=== PATIENT | female | born 1975 | race Caucasian/White ===

== ENCOUNTER 2016-03-09 12:53 | Inpatient (IN) | payer MEDICARE ==
--- NOTE | 2016-03-09 13:53 | Emergency Department Report ---
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 Schuster, with complaint of midsternal chest pain, nausea, dizziness and hypotension. Patient says that she was told by Dr. Schuster that her blood pressure was about 70 over palp. The patient has a history of atrial fibrillation with 5's, ND 5, coronary artery disease, history of DVT and PE. Patient says the chest pain as a heaviness and is 8 out of 10 currently. She received some aspirin in route by EMS. Patient says she had 2 different admissions to [facility] in late January and early February for chest pain and hypotension. She required dopamine drips at that time. She says she had a stress test that was normal. She previously saw a Dr. Kunz in [place] regarding her cardiac ablations and follow with the cardiology group to [place], but it was suggested by her PCP that she seek out a new cardiology group and thus was seeing Dr. Schuster for the first time. She denies any fever, diaphoresis, back pain or shortness of breath. Severity scale (0 -10): 8 - Related Data Home Medications Medication Instructions Recorded Confirmed Last Taken Aspirin [Aspirin TAB] 325 mg PO QDAY 03/09/16 03/09/16 Unknown Clopidogrel [Plavix] 75 mg PO QDAY 03/09/16 03/09/16 Unknown Diazepam Tab [Valium] 5 mg PO QHS PRN 03/09/16 03/09/16 Unknown Gabapentin [Gralise] 300 mg PO 03/09/16 Unknown Oxycodone HCl/Acetaminophen 1 each PO TID PRN 03/09/16 03/09/16 Unknown [Percocet 10/325 mg] Quetiapine Fumarate [Seroquel] 100 mg PO QHS 03/09/16 03/09/16 Unknown Tizanidine HCl [Zanaflex] 4 mg PO TID PRN 03/09/16 03/09/16 Unknown Allergies Allergy/AdvReac Type Severity Reaction Status Date / Time Cephalosporins Allergy Anaphylaxis Verified 03/09/16 13:33 latex Allergy Anaphylaxis Verified 03/09/16 13:33 Sulfa (Sulfonamide Allergy Anaphylaxis Verified 03/09/16 13:33 Antibiotics) RAFAEL score - Rafael Score Age > 65: (0) No Aspirin use within the Past 7 Days: (0) No 3 or more CAD Risk Factors: (1) Yes 2 or more Angina events in past 24 hrs: (1) Yes Known CAD with more than 50% Stenosis: (0) No Elevated Cardiac Markers: (0) No ST Deviation Greater than 0.5mm: (0) No RAFAEL Score: 2 ED Review of Systems ROS: Stated complaint: HYPOTENSION,CHEST PAIN Other details as noted in HPI Comment: All other systems reviewed and negative Constitutional: denies: chills, fever Eyes: denies: eye pain, eye discharge, vision change ENT: denies: ear pain, throat pain Respiratory: denies: cough, shortness of breath, wheezing Cardiovascular: chest pain, palpitations Gastrointestinal: nausea. denies: abdominal pain Genitourinary: denies: urgency, dysuria, discharge Musculoskeletal: denies: back pain, joint swelling, arthralgia Skin: denies: rash, lesions Neurological: other (dizziness/lightheadedness). denies: headache, numbness ED Past Medical Hx - Past Medical History Previous Medical History?: Yes Hx Heart Attack/AMI: Yes Hx Deep Vein Thrombosis: Yes Hx Pulmonary Embolism: Yes Additional medical history: hypotension - Surgical History Past Surgical History?: Yes Additional Surgical History: port placement, ablations, ayala filter - Social History Smoking Status: Never Smoker Substance Use Type: None - Medications Home Medications: Home Medications Medication Instructions Recorded Confirmed Last Taken Type Aspirin [Aspirin TAB] 325 mg PO QDAY 03/09/16 03/09/16 Unknown History Clopidogrel [Plavix] 75 mg PO QDAY 03/09/16 03/09/16 Unknown History Diazepam Tab [Valium] 5 mg PO QHS PRN 03/09/16 03/09/16 Unknown History Gabapentin [Gralise] 300 mg PO 03/09/16 Unknown History Oxycodone HCl/Acetaminophen 1 each PO TID PRN 03/09/16 03/09/16 Unknown History [Percocet 10/325 mg] Quetiapine Fumarate [Seroquel] 100 mg PO QHS 03/09/16 03/09/16 Unknown History Tizanidine HCl [Zanaflex] 4 mg PO TID PRN 03/09/16 03/09/16 Unknown History ED Physical Exam - General Limitations: No Limitations - Other Other exam information: GENERAL: The patient is well-developed well-nourished. HEENT: Normocephalic. Atraumatic. Extraocular motions are intact. Patient has moist mucous membranes. Pupils equal reactive to light bilaterally. NECK: Supple. Trachea is midline. CHEST/LUNGS: Clear to auscultation. There is no respiratory distress noted. Chest pain is not reproducible to palpation of chest wall. HEART/CARDIOVASCULAR: Regular. There is no tachycardia. There is no gallop rub or murmur. ABDOMEN: Abdomen is soft, nontender. Patient has normal bowel sounds. There is no abdominal distention. SKIN: There is no rash. There is no edema. There is no diaphoresis. NEURO: The patient is awake, alert, and oriented. The patient is cooperative. The patient has no focal neurologic deficits. The patient has normal speech. MUSCULOSKELETAL: There is no tenderness or deformity. There is no limitation range of motion. There is no evidence of acute injury. Cap refill less than 2 seconds. ED Course Vital Signs 03/09/16 03/09/16 03/09/16 13:07 13:10 13:16 Temperature Pulse Rate 79 71 Respiratory 16 11 L Rate Blood Pressure 103/55 103/55 Blood Pressure [Right] O2 Sat by Pulse 100 99 100 Oximetry 03/09/16 03/09/16 03/09/16 13:20 13:26 13:30 Temperature Pulse Rate 75 74 70 Respiratory 10 L 17 12 Rate Blood Pressure 103/55 103/55 97/51 Blood Pressure [Right] O2 Sat by Pulse 100 98 Oximetry 03/09/16 03/09/16 03/09/16 13:36 13:38 13:40 Temperature 98.1 F Pulse Rate 75 78 74 Respiratory 9 L 11 L Rate Blood Pressure 97/51 97/51 97/51 Blood Pressure [Right] O2 Sat by Pulse 100 99 98 Oximetry 03/09/16 03/09/16 03/09/16 13:46 13:48 13:50 Temperature Pulse Rate 84 69 Respiratory 17 18 15 Rate Blood Pressure 97/51 97/51 Blood Pressure [Right] O2 Sat by Pulse 99 99 100 Oximetry 03/09/16 03/09/16 03/09/16 13:56 14:00 14:06 Temperature Pulse Rate 75 75 81 Respiratory 17 11 L 16 Rate Blood Pressure 97/51 108/75 108/75 Blood Pressure [Right] O2 Sat by Pulse 100 100 94 Oximetry 03/09/16 03/09/16 03/09/16 14:10 14:15 14:20 Temperature Pulse Rate 80 78 77 Respiratory 17 14 13 Rate Blood Pressure 108/75 Blood Pressure [Right] O2 Sat by Pulse 96 99 100 Oximetry 03/09/16 03/09/16 03/09/16 14:26 14:30 14:36 Temperature Pulse Rate 84 73 68 Respiratory 13 13 12 Rate Blood Pressure 93/57 108/75 Blood Pressure [Right] O2 Sat by Pulse 100 92 100 Oximetry 03/09/16 03/09/16 03/09/16 14:40 14:46 14:50 Temperature Pulse Rate 78 81 81 Respiratory 12 14 15 Rate Blood Pressure 108/75 108/75 108/75 Blood Pressure [Right] O2 Sat by Pulse 100 100 100 Oximetry 03/09/16 03/09/16 03/09/16 14:56 15:00 15:06 Temperature Pulse Rate 92 H 88 74 Respiratory 14 13 18 Rate Blood Pressure 108/75 112/70 112/70 Blood Pressure [Right] O2 Sat by Pulse 99 98 98 Oximetry 03/09/16 03/09/16 03/09/16 15:10 15:16 15:20 Temperature Pulse Rate 77 79 76 Respiratory 15 15 14 Rate Blood Pressure 112/70 112/70 112/70 Blood Pressure [Right] O2 Sat by Pulse 100 100 100 Oximetry 03/09/16 03/09/16 03/09/16 15:26 15:30 15:36 Temperature Pulse Rate 78 83 74 Respiratory 15 14 15 Rate Blood Pressure 112/70 102/58 102/58 Blood Pressure [Right] O2 Sat by Pulse 100 100 100 Oximetry 03/09/16 03/09/16 03/09/16 15:40 15:46 15:50 Temperature Pulse Rate 70 63 63 Respiratory 22 20 21 Rate Blood Pressure 102/58 102/58 102/58 Blood Pressure [Right] O2 Sat by Pulse 100 100 100 Oximetry 03/09/16 03/09/16 03/09/16 15:56 16:00 16:06 Temperature Pulse Rate 61 62 68 Respiratory 19 21 21 Rate Blood Pressure 102/58 85/31 85/31 Blood Pressure [Right] O2 Sat by Pulse 99 100 100 Oximetry 03/09/16 03/09/16 03/09/16 16:10 16:16 16:20 Temperature Pulse Rate 63 63 62 Respiratory 20 21 20 Rate Blood Pressure 85/31 85/31 85/31 Blood Pressure [Right] O2 Sat by Pulse 99 99 98 Oximetry 03/09/16 03/09/16 03/09/16 16:25 16:30 16:36 Temperature Pulse Rate 68 61 64 Respiratory 14 13 16 Rate Blood Pressure 77/38 81/38 81/38 Blood Pressure [Right] O2 Sat by Pulse 98 100 98 Oximetry 03/09/16 03/09/16 03/09/16 16:40 16:45 16:50 Temperature Pulse Rate 61 67 61 Respiratory 12 12 14 Rate Blood Pressure 90/48 84/45 84/45 Blood Pressure [Right] O2 Sat by Pulse 99 99 98 Oximetry 03/09/16 03/09/16 03/09/16 16:55 16:56 17:00 Temperature Pulse Rate 59 L 59 L 58 L Respiratory 16 18 18 Rate Blood Pressure 84/45 84/45 84/45 Blood Pressure [Right] O2 Sat by Pulse 100 99 99 Oximetry 03/09/16 03/09/16 03/09/16 17:04 17:06 17:10 Temperature Pulse Rate 58 L 55 L 59 L Respiratory 18 23 16 Rate Blood Pressure 84/45 84/45 84/45 Blood Pressure [Right] O2 Sat by Pulse 99 98 98 Oximetry 03/09/16 03/09/16 03/09/16 17:15 17:20 17:30 Temperature Pulse Rate 57 L 65 68 Respiratory 17 18 18 Rate Blood Pressure 86/39 Blood Pressure 87/40 87/42 [Right] O2 Sat by Pulse 99 99 99 Oximetry 03/09/16 03/09/16 03/09/16 17:45 17:51 17:56 Temperature Pulse Rate 62 59 L 61 Respiratory 18 20 17 Rate Blood Pressure 95/54 95/54 Blood Pressure 98/51 [Right] O2 Sat by Pulse 99 97 98 Oximetry 03/09/16 18:00 Temperature Pulse Rate 58 L Respiratory 21 Rate Blood Pressure 95/54 Blood Pressure [Right] O2 Sat by Pulse 97 Oximetry ED Medical Decision Making - Lab Data Result diagrams: 03/09/16 Unknown 03/09/16 Unknown - EKG Data -: EKG Interpreted by Me EKG shows normal: sinus rhythm (with sinus arrhythmia), axis, intervals, QRS complexes, ST-T waves Rate: normal - EKG Data When compared to previous EKG there are: previous EKG unavailable Interpretation: normal EKG - Radiology Data Radiology results: report reviewed, image reviewed interpreted by me: Chest x-ray did not show any acute process. Heart is normal shape and size. No effusions. No pneumothorax. No signs of pneumonia seen. VQ scan is low probability for pulmonary embolism. - Medical Decision Making 40-year-old female with history of hypotension, chest pain presents to the emergency department from cardiology after having a systolic blood pressure less than 70 with her current complaints. Patient does present with some hypertension but the blood pressure has remained in the 90s for systolic. Patient had a full cardiac workup. EKG does not show any signs of ST elevation ND. First troponin is negative. Patient does not have any significant electrolyte abnormalities, glucose abnormalities but does have some mild renal insufficiency. Patient has a slightly elevated in equivocal d-dimer so a VQ scan was done and came back low probability for PE. Chest x-ray does not show any acute process. Patient did have an episode of of hypotension just before her VQ scan which she went down to a systolic of about 70 and became slightly diaphoretic. She responded to IV fluid resuscitation. Patient is already been seen in the emergency department by cardiology and it appears as if they plan to do a echocardiogram tomorrow. Patient has a power chest port if necessary for any pressors. Patient has been accepted for admission by the hospitalist, Dr. Marc. - Differential Diagnosis ND, PE, pneumonia, syncope Critical Care Time: No Critical care attestation.: If time is entered above; I have spent that time in minutes in the direct care of this critically ill patient, excluding procedure time. ED Disposition Clinical Impression: Chest pain Qualifiers: Chest pain type: unspecified Qualified Code(s): R07.9 - Chest pain, unspecified Hypotension Qualifiers: Hypotension type: unspecified hypotension type Qualified Code(s): I95.9 - Hypotension, unspecified Disposition: OP ADMITTED IP TO THIS HOSP Is pt being admited?: Yes Condition: Fair Instructions: Chest Pain (ED) Time of Disposition: 18:46
[2016-03-09 14:18] LABS: Basophils % (Auto) 0.3 % (0.0-1.8); Eosinophils % (Auto) 1.1 % (0.0-4.3); Hematocrit 37.1 % (30.3-42.9); Hemoglobin 12.2 gm/dl (10.1-14.3); Mean Corpuscular HGB Conc 33 % (30-34); Mean Corpuscular Hemoglobin 29 pg (28-32); Mean Corpuscular Volume 89 fl (79-97); Platelet Count 315 K/mm3 (140-440); Red Blood Count 4.17 M/mm3 (3.65-5.03); Red Cell Distribution Width 13.1 % (13.2-15.2); White Blood Count 10.9 K/mm3 (4.5-11.0)
[2016-03-09 14:29] LABS: INR 1.05 (0.87-1.13); Partial Thromboplastin Time 36.7 Sec. (24.2-36.6)
--- NOTE | 2016-03-09 14:30 | Admit Criteria Form ---
Admission Criteria Documentation: CARDIOLOGY GRG Clinical Indications for Admission to Inpatient Care ( Place 'X' for any and all applicable criteria): Hospital admission is needed for appropriate care of the patient because of ANY ONE of the following (1): [ X] I. Hemodynamic instability as indicated by ALL of the following (1)(2)(3 )(4)(5) [ X]a) Vital signs or other findings not as expected for chronic patient condition or baseline [ X]b) Instability indicated by ANY ONE of the following: [ X]i) Hypotension [ ]ii) Symptomatic Tachycardia unresponsive to treatment ( e.g., analgesia, fluids, sedation as indicated) [ ]iii) Inadequate perfusion indicated by ANY ONE of the following: [ ] 1) Lactic acidosis (> 2 mmol/L) [ ] 2) New abnormal capillary refill (> 3 seconds) [ ] 3) Reduced urine output [ ] 4) New altered mental status [ ]iv) Orthostatic vital sign changes unresponsive to treatment (e.g., fluids) [ ]v) IV inotropic or vasopressor medication required to maintain adequate blood pressure or perfusion [ ] II. Severe heart failure as indicated by ANY ONE of the following(17)(18) [ ]a) Respiratory distress [ ]b) Hypotension [ ]c) Anasarca (refractory to outpatient therapy) [ ]d) Cardiac arrhythmias of immediate concern [ ]e) Myocardial ischemia [ ] III. Cardiac arrhythmias or findings of immediate concern indicated by ANY ONE of the following (19)(20): [ ] a) Heart rhythms that are inherently dangerous or unstable indicated by ANY ONE of the following (21)(22)(23): [ ] i) Resuscitated ventricular fibrillation or cardiac arrest [ ] ii) Ventricular escape rhythm [ ] iii) Sustained ventricular tachycardia (30 seconds or more of ventricular rhythm at greater than 100 beats per minute) [ ] iv) Nonsustained ventricular tachycardia and ANY ONE of the following: [ ] 1) Suspected cardiac ischemia as cause or consequence of ventricular tachycardia [ ] 2) In setting of acute myocarditis [ ] b) Unstable cardiac conduction defects indicated by ANY ONE of the following(23)(24)(25) [ ] i) Type II second-degree atrioventricular block [ ]ii) Third-degree atrioventricular block [ ]iii) New-onset left bundle branch block with suspected myocardial ischemia [ ]c) Any heart rhythm and ANY ONE of the following (21)(22)(26)(27) (28) [ ] i) Continuous long-term ECG monitoring needed (e.g., initiation of drug requiring monitoring for more than 24 hours) [ ] ii) Patient has automatic implanted cardioverter defibrillator that is repeatedly firing, malfunctioning, or in need of immediate adjustment of settings beyond the scope of ambulatory or observation care [ ]d) Heart rhythms of concern due to ANY ONE of the following: [ ] i) Hypotension [ ] ii) Respiratory distress [ ] iii) Association with other significant symptoms (e.g., bradycardia with syncope or ongoing dizziness, supraventricular tachycardia with chest pain (14)(15)(17) [ ] IV. Monitoring for cardiac contusion beyond the scope of observation care needed [A](30)(31)(32) [ ] V. Surgical or device complication (e.g., valve replacement complication , pacemaker dysfunction) (35)(41)(44)(45)(46) [ ] . Inpatient palliative care needed. [B](49) Also use Inpatient Palliative Care Criteria [ ] VII. Nonbacterial thrombotic (marantic) endocarditis (36)(43)(47)(48) [ ] VIII. Cardiology condition, symptom, or finding for which emergency and observation care has failed or are not considered appropriate. [ ] IX. Acute valvular disease requiring inpatient as indicated by ANY ONE of the following (41) [ ]a) Acute valvular regurgitation (42) [ ]b) Noninfectious valvulitis (43) [ ]c) Obstructive valve thrombosis [ ]d) Paravalvular leak [ ]e) Other significant valvular disorder remaining after emergency or observation level of care (as appropriate) [ ]X. Pericardial disease requiring inpatient treatment as indicated by ANY ONE of the following (33)(34)(35)(36)(37) [ ]a) Suspected tamponade (38)(39)(40) [ ]b) Hemopericardium [ ]c) Other significant pericardial disorder remaining after emergency or observation level of care (as appropriate) [ ] XI. Cardiac ischemia beyond scope of emergency and observation care. [ ] XII. Hypertension requiring inpatient treatment as indicated by ANY ONE of the following (6)(7)(8) [ ]a) SBP greater than 220 mm Hg or DBP greater than 120 mmHg despite treatment [ ]b) SBP greater than 140 mm Hg or DBP greater than 100 mm Hg with evidence of acute end organ damage as indicated by ANY ONE of the following [ ] i) Altered mental status [ ] ii) Acute renal failure as indicated by new onset of ANY ONE of the following (9)(10)(11)(12)(13) [ ]1) 3-fold rise in serum creatinine from baseline [ ]2) Serum creatinine greater than 4 mg/dL ( 354 micromoles/L) with acute rise greater than 0.5 mg/dL (44.2 micromoles/L) [ ]3) Reduction of more than 75% in estimated glomerular filtration rate from baseline [ ]4) Estimated glomerular filtration rate less than 35 mL/min/1.73m2 (0.59 mL/sec/1.73m2) in child up to 18 years of age [ ]5) Cessation of urine output indicated by ALL of the following [ ]A. Adequate volume status [ ]B. Inadequate urine output as indicated by ANY ONE of the following [ ]a. Urine output less than 0.3 mL/kg/hr for 24 hours [ ]b. Anuria (urine output less than 0.1 mL/kg/hr) for 12 hours [ ] iii) Aortic dissection [ ] iv) Myocardial Ischemia [ ] v) Left ventricular heart failure [ ]vi) Retinal Hemorrhage [ ]vii) Other significant finding [ ]c) Hypertension in child requiring inpatient treatment as indicated by ALL of the following(14)(15)(16) [ ] i) Outpatient treatment not effective, not available, or not appropriate [ ]ii) SBP or DBP greater than 95th percentile for age [ ]iii) Evidence of acute end organ damage as indicated by ANY ONE of the following [ ]1) Altered mental status [ ]2) Acute renal failure as indicated by new onset of ANY ONE of the following(9)(10)(11)(12)(13) [ ]A. 3-fold rise in serum creatinine from baseline [ ]B. Serum creatinine greater than 4 mg/dL (354 micromoles/L) with acute rise greater than 0.5 mg/dL (44.2 micromoles/L) [ ]C. Reduction of more than 75% in estimated glomerular filtration rate from baseline [ ]D. Estimated glomerular filtration rate less than 35 mL/min/1.73m2 (0.59 mL/sec/1.73m2) in child up to 18 years of age [ ]E. Cessation of urine output indicated by ALL of the following [ ]a. Adequate volume status [ ]b. Inadequate urine output as indicated by ANY ONE of the following [ ]i) Urine output less than 0.3 mL/kg/hr for 24 hours [ ]ii) Anuria ( urine output less than 0.1 mL/kg/hr) for 12 hours [ ]3) Severe headache [ ]4) Visual disturbance [ ]5) Retinal hemorrhage [ ]6) Other significant finding [ ]XIII. Complications of transplanted heart indicated by ANY ONE of the following(61): [ ]a) Acute graft rejection requiring inpatient management (eg, intravenous immunosuppression)(62)(63) [ ]b) Acute graft heart failure indicated by ANY ONE of the following(64): [ ]i) Hemodynamic instability [ ]ii) Cardiac arrhythmias of immediate concern [ ]iii) Pulmonary edema that is very severe (eg, mechanical ventilation needed, imminent or likely, need for 100% oxygen to keep oxygen saturation above 90%) [ ]iv) Pulmonary edema that is persistent as indicated by ALL of the following: [ ]1) New need for oxygen therapy to keep oxygen saturation above 90% (or increased FiO2 need from baseline) [ ]2) Has not improved sufficiently with emergency department or observation care IV diuretics or other heart failure treatments[E] [ ]v) Altered mental status that is severe or persistent [ ]vi) Increased creatinine (new on laboratory test) with reduction of more than 50% in estimated glomerular filtration rate from baseline [ ]vii) Progressively (ongoing) rising creatinine (known from past laboratory test) with reduction of more than 25% in estimated glomerular filtration rate from baseline [ ]viii) Acute renal failure [ ]ix) Acute peripheral ischemia (eg, examination shows pulseless, cool, mottled, or cyanotic extremity) [ ]x) Pulmonary artery catheter monitoring needed [ ]xi) Other sign or symptom of heart failure requiring inpatient treatment (ie, too severe or not responsive to outpatient and observation care treatment) [ ]c) Infection requiring inpatient management (eg, Hemodynamic instability, need for intravenous antimicrobial treatment)(66)(67)(68)(69)(70) [ ]d) Cardiac allograft vasculopathy requiring inpatient management ( eg evidence of cardiac ischemia)(71) [ ]e) Other complication of transplanted heart (eg, stroke, severe pulmonary hypertension, severe valvular dysfunction) requiring inpatient management(72) The original [facility] [employer] content created by [facility] has been revised. The portions of the content which have been revised are identified through the use of italic text or in bold, and [facility] has neither reviewed nor approved the modified material. All other unmodified content is copyright [facility]. Please see references footnoted in the original [facility] [employer] edition 2016 Admission Criteria Met: Yes
[2016-03-09 14:34] LABS: Alanine Aminotransferase 16 units/L (7-56); Albumin 3.9 g/dL (3.9-5); Albumin/Globulin Ratio 1.2 %; Alkaline Phosphatase 108 units/L (35-129); BUN/Creatinine Ratio 13.18; Bilirubin,Total 0.5 mg/dL (0.1-1.2); Blood Urea Nitrogen 29 mg/dL (7-17); Calcium 8.9 mg/dL (8.4-10.2); Carbon Dioxide 25 mmol/L (22-30); Chloride 99.5 mmol/L (98-107); Creatine Kinase 28 units/L (30-135); Glucose 100 mg/dL (65-100); Potassium 4.1 mmol/L (3.6-5.0); Sodium 139 mmol/L (137-145); Total Protein 7.1 g/dL (6.3-8.2)
[2016-03-09 14:36] LABS: Anion Gap 19 mmol/L; Creatine Kinase MB < 1.0 ng/mL (0.0-4.0)
--- NOTE | 2016-03-09 15:01 | XRay Report ---
AP chest x-ray. Findings: The heart and lungs are normal. A right central line terminates in the SVC and there is no pneumothorax. Impression: No acute findings.
--- NOTE | 2016-03-09 16:07 | Consultation ---
History of Present Illness Consult date: 03/09/16 Requesting physician: VIVIANA MESA Consult reason: hypotension History of present illness: The patient is a 40 year old female with a history of afib s/p ablations, DVT, PE, hypotension who presented to Dr. Schuster's office this morning for evaluation of chest pain, hypotension and dizziness. In the office her BP was 92/70 lying and only 68 palpable standing so she was sent to the ER via EMS for further evaluation. She complains of chest pain that she describes as a "heaviness" and states that it is worse with movement and deep inspiration. She reports extreme fatigue and dizziness upon standing for the past several months. She states that she had 2 different admissions to [facility] in late January and early February for chest pain and hypotension and reports temporarily requiring dopamine. However, she states that no one could ever tell her why she was so hypotensive and thus was seeking out the opinion of a new boiler operator helper, Dr. Schuster. Past History Past Medical History: atrial fib, DVT, PVD, other (chronic kidney disease, possible Lupus) Past Surgical History: Other (port placement, afib ablation ) Social history: denies: smoking, alcohol abuse, prescription drug abuse, IV drug use Family history: CAD Medications and Allergies Allergies Allergy/AdvReac Type Severity Reaction Status Date / Time Cephalosporins Allergy Anaphylaxis Verified 03/09/16 13:33 latex Allergy Anaphylaxis Verified 03/09/16 13:33 Sulfa (Sulfonamide Allergy Anaphylaxis Verified 03/09/16 13:33 Antibiotics) Home Medications Medication Instructions Recorded Confirmed Last Taken Type Aspirin [Aspirin TAB] 325 mg PO QDAY 03/09/16 03/09/16 Unknown History Clopidogrel [Plavix] 75 mg PO QDAY 03/09/16 03/09/16 Unknown History Diazepam Tab [Valium] 5 mg PO QHS PRN 03/09/16 03/09/16 Unknown History Gabapentin [Gralise] 300 mg PO 03/09/16 Unknown History Oxycodone HCl/Acetaminophen 1 each PO TID PRN 03/09/16 03/09/16 Unknown History [Percocet 10/325 mg] Quetiapine Fumarate [Seroquel] 100 mg PO QHS 03/09/16 03/09/16 Unknown History Tizanidine HCl [Zanaflex] 4 mg PO TID PRN 03/09/16 03/09/16 Unknown History Review of Systems Constitutional: fatigue, weakness, no fever, no chills Ears, nose, mouth and throat: no nasal congestion, no nasal discharge, no sinus pressure Cardiovascular: chest pain, palpitations, lightheadedness, no shortness of breath Respiratory: no cough, no shortness of breath, no congestion, no wheezing Gastrointestinal: no abdominal pain, no nausea, no vomiting, no diarrhea Genitourinary Female: no dysuria, no urgency Musculoskeletal: no neck stiffness, no neck pain, no myalgias Integumentary: no rash, no pruritis Neurological: no parathesias, no numbness, no tingling, no headaches Endocrine: no cold intolerance, no heat intolerance Hematologic/Lymphatic: no easy bruising, no easy bleeding Allergic/Immunologic: no urticaria, no wheezing Physical Examination Vital Signs Temp Pulse BP Pulse Ox 98.1 F 78 97/51 99 03/09/16 13:38 03/09/16 13:38 03/09/16 13:38 03/09/16 13:38 General appearance: no acute distress HEENT: Positive: PERRL, Normocephaly, Mucus Membranes Moist Neck: Positive: neck supple, trachea midline Cardiac: Positive: Reg Rate and Rhythm, S1/S2 Lungs: Positive: clear to auscultation Neuro: Positive: Grossly Intact Abdomen: Positive: Soft, Active Bowel Sounds. Negative: Tender Skin: Positive: Clear. Negative: Rash Extremities: Present: normal. Absent: edema Results 03/09/16 Unknown 03/09/16 Unknown Cardiac Enzymes 03/09/16 Range/Units Unknown AST 15 (5-40) units/L CK-MB (CK-2) < 1.0 (0.0-4.0) ng/mL Coagulation 03/09/16 Range/Units Unknown PT 13.6 (12.2-14.9) Sec. INR 1.05 (0.87-1.13) APTT 36.7 H (24.2-36.6) Sec. CBC 03/09/16 Range/Units Unknown WBC 10.9 (4.5-11.0) K/mm3 RBC 4.17 (3.65-5.03) M/mm3 Hgb 12.2 (10.1-14.3) gm/dl Hct 37.1 (30.3-42.9) % Plt Count 315 (140-440) K/mm3 Lymph # 2.4 (1.2-5.4) K/mm3 [place] # 0.6 (0.0-0.8) K/mm3 Eos # 0.1 (0.0-0.4) K/mm3 Baso # 0.0 (0.0-0.1) K/mm3 Comprehensive Metabolic Panel 03/09/16 Range/Units Unknown Sodium 139 (137-145) mmol/L Potassium 4.1 (3.6-5.0) mmol/L Chloride 99.5 (98-107) mmol/L Carbon Dioxide 25 (22-30) mmol/L BUN 29 H (7-17) mg/dL Creatinine 2.2 H (0.7-1.2) mg/dL Glucose 100 (65-100) mg/dL Calcium 8.9 (8.4-10.2) mg/dL AST 15 (5-40) units/L ALT 16 (7-56) units/L Alkaline Phosphatase 108 (35-129) units/L Total Protein 7.1 (6.3-8.2) g/dL Albumin 3.9 (3.9-5) g/dL - Imaging and Cardiology Echo: pending EKG: image reviewed EKG interpretations - Telemetry EKG Rhythm: Sinus Rhythm - EKG Sinus rhythms and dysrhythmias: sinus rhythm Assessment and Plan Hypotension obtain orthostatics Atypical chest pain obtain echo await V/Q scan results continue to observe on the monitor Hx. of atrial fibrillation s/p ablation (done in [place], [place]) Chronic kidney disease Hx. of DVT/PE ?Lupus Will obtain orthostatics and continue to observe on the monitor. Await echo findings. The patient has been seen in conjunction with Dr. Cullen who agrees with the assessment and plan of care.
[2016-03-09] MEDS ORDERED: NACL 0.9% 1000 ML 1,000 ML IV ONE ×4 (16:34→19:10)
--- NOTE | 2016-03-09 18:06 | Nuclear Medicine Report ---
FINAL REPORT EXAM: NM LUNG SCAN PERF/VENT HISTORY: CP, elevated dimer . Prior history of PE and DVT 6 months ago TECHNIQUE: Ventilation and perfusion imaging of the lungs was performed in multiple planar projections. Correlation with a chest x-ray dated 03/09/2016 was made. DOSE: 15 millicuries Xe-133 gas; 5.0 millicuries 99m Tc MAA given IV. PRIORS: None. FINDINGS: The tracer distribution on perfusion imaging is homogeneous throughout. No unmatched segmental or subsegmental perfusion defects are identified to suggest the presence of pulmonary embolism. The ventilation study is also homogeneous and within normal limits. IMPRESSION: Normal V/Q scan
[2016-03-09 20:42] LABS: Creatine Kinase 26 units/L (30-135)
--- NOTE | 2016-03-09 20:45 | History and Physical Report ---
History of Present Illness Date of examination: 03/09/16 Date of admission: 03/09/16 Chief complaint: Chest pain today Hypotension History of present illness: Miss Leonard is a 40-year-old female who was sent in by Dr. Schuster her manager office for further evaluation of hypotension. She reported that she went for her routine cardiology appointment and was noted to have hypotension with systolic as low as 68 palpable. She also reported that she's been feeling weak and had associated chest pain today with dizziness. She gives a history of having on and off hypotension for which she is now admitted to the hospital for on previous occasions. She was seen by the manager office and echo ordered with orthostatics Past History Past Medical History: atrial fib, DVT, PVD, other (chronic kidney disease, possible Lupus) Past Surgical History: Other (port placement, afib ablation ) Social history: denies: smoking, alcohol abuse, prescription drug abuse, IV drug use Family history: CAD Medications and Allergies Allergies Allergy/AdvReac Type Severity Reaction Status Date / Time Cephalosporins Allergy Anaphylaxis Verified 03/09/16 13:33 latex Allergy Anaphylaxis Verified 03/09/16 13:33 Sulfa (Sulfonamide Allergy Anaphylaxis Verified 03/09/16 13:33 Antibiotics) Home Medications Medication Instructions Recorded Confirmed Last Taken Type Aspirin [Aspirin TAB] 325 mg PO QDAY 03/09/16 03/09/16 Unknown History Clopidogrel [Plavix] 75 mg PO QDAY 03/09/16 03/09/16 Unknown History Diazepam Tab [Valium] 5 mg PO QHS PRN 03/09/16 03/09/16 Unknown History Gabapentin [Gralise] 300 mg PO 03/09/16 Unknown History Oxycodone HCl/Acetaminophen 1 each PO TID PRN 03/09/16 03/09/16 Unknown History [Percocet 10/325 mg] Quetiapine Fumarate [Seroquel] 100 mg PO QHS 03/09/16 03/09/16 Unknown History Tizanidine HCl [Zanaflex] 4 mg PO TID PRN 03/09/16 03/09/16 Unknown History Active Meds: Active Medications Sodium Chloride (Nacl 0.9% 1000 Ml) 1,000 mls @ 125 mls/hr IV ONCE ONE Stop: 03/10/16 03:09 Last Admin: 03/09/16 19:45 Dose: 125 mls/hr Review of Systems All systems: negative Constitutional: fatigue, weakness, malaise, lethargy, no weight loss, no weight gain, no fever, no chills, no anorexia Ears, nose, mouth and throat: no ear pain, no ear discharge, no tinnitis Breasts: normal Cardiovascular: other (as in [facility] ) Respiratory: no cough, no cough with sputum, no excessive sputum, no hemoptysis , no shortness of breath Gastrointestinal: no abdominal pain, no nausea, no vomiting, no diarrhea, no constipation, no change in bowel habits Genitourinary Female: no flank pain, no dysuria, no urinary frequency Rectal: no pain, no incontinence, no bleeding Musculoskeletal: no neck stiffness, no neck pain, no shooting arm pain, no arm numbness/tingling, no low back pain, no shooting leg pain Integumentary: no rash, no pruritis, no redness, no sores Neurological: no head injury, no transient paralysis, no paralysis, no weakness Psychiatric: no anxiety, no memory loss, no change in sleep habits Endocrine: no cold intolerance, no heat intolerance, no polyphagia, no excessive thirst Hematologic/Lymphatic: no easy bruising, no easy bleeding Allergic/Immunologic: no urticaria, no allergic rhinitis Exam - Constitutional Vitals: Temp Pulse Resp BP Pulse Ox 98.1 F 64 18 99/54 100 03/09/16 13:38 03/09/16 19:30 03/09/16 19:30 03/09/16 19:30 03/09/16 19:30 General appearance: Present: no acute distress, well-nourished - EENT Eyes: Present: PERRL, EOM intact. Absent: scleral icterus, conjunctival injection ENT: hearing intact, clear oral mucosa, no oropharyngeal erythema, no poor dentition - Neck Neck: Present: supple. Absent: enlarged thyroid, masses or JVD - Respiratory Respiratory effort: normal Respiratory: negative: diminished, rales, rhonchi, wheezing - Cardiovascular Rhythm: regular Heart Sounds: Present: S1 & S2. Absent: gallop - Extremities Extremities: no ischemia, pulses intact, pulses symmetrical, No edema - Abdominal General gastrointestinal: Present: soft, non-tender, non-distended, normal bowel sounds Female genitourinary: Present: deferred - Rectal Rectal Exam: deferred - Integumentary Integumentary: Present: clear, warm - Musculoskeletal Musculoskeletal: strength equal bilaterally - Psychiatric Psychiatric: appropriate mood/affect, intact judgment & insight, cooperative - Neurologic Neurologic: CNII-XII intact, moves all extremities Results - Labs CBC & Chem 7: 03/09/16 Unknown 03/09/16 Unknown Labs: Abnormal lab results 03/09/16 03/09/16 03/09/16 Range/Units Unknown Unknown Unknown RDW 13.1 L (13.2-15.2) % Seg Neutrophils % 70.4 H (40.0-70.0) % APTT 36.7 H (24.2-36.6) Sec. D-Dimer 516.98 H (0-234) ng/mlDDU BUN 29 H (7-17) mg/dL Creatinine 2.2 H (0.7-1.2) mg/dL Total Creatine Kinase 28 L (30-135) units/L TSH (0.270-4.200) mlU/mL 03/09/16 Range/Units Unknown RDW (13.2-15.2) % Seg Neutrophils % (40.0-70.0) % APTT (24.2-36.6) Sec. D-Dimer (0-234) ng/mlDDU BUN (7-17) mg/dL Creatinine (0.7-1.2) mg/dL Total Creatine Kinase (30-135) units/L TSH 0.240 L (0.270-4.200) mlU/mL lung scan- negative for PE Assessment and Plan 1. Hypotension- will admit as patient is more than 2 midnights are quite for treatment. We'll follow-up with cardiology for further recommendations. Will follow orthostatics. We'll check echocardiogram. Continue IV fluids and monitor for symptoms of fluid overload 2. Atypical chest pain -doubt acute coronary syndrome. Will follow-up with serial cardiac enzymes. Follow up with echocardiogram. V/Q scan is unremarkable. Follow up with cardiology for further recommendations. Continue aspirin. We'll check lipid panel. 3.Atrial fibrillation -s/p ablation (done in [place], [place])-monitor on telemetry. Follow up with cardiology for further recommendations 4.Chronic kidney disease- avoid nephrotoxins; monitor renal function; consult renal; avoid hypotension 5. ? 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 DVT prophylaxis - lovenox
[2016-03-09 20:48] LABS: Creatine Kinase MB < 1.0 ng/mL (0.0-4.0)
[2016-03-09] MEDS ORDERED: TYLENOL ONE (21:08)
[2016-03-09] MEDS: TYLENOL PO PRN (21:21)
--- NOTE | 2016-03-09 22:22 | Ultrasound Report ---
FINAL REPORT EXAM: US RENAL BILAT HISTORY: renal failure TECHNIQUE: Renal ultrasound. PRIORS: None currently available. FINDINGS: Right kidney measures 9.3 x 4 x 4.5 cm. Cortex measures 1.7 cm. Normal echotexture. No hydronephrosis, stone, or lesion. Left kidney measures 10.3 x 5.1 x 5.2 cm. Cortex measures 1.8 cm. Isoechoic area in the inferior left kidney measures 2.4 x 2.5 x 2.9 cm and could represent a lobulation, column of Shin, or possible renal lesion. No hydronephrosis. No distinct stone. Images of the bladder are unremarkable. IMPRESSION: Possible left renal lesion or congenital variation. Further evaluation with a CT abdomen with and without contrast may be helpful for further evaluation if clinically indicated.
[2016-03-10 07:28] LABS: Anion Gap 17 mmol/L; BUN/Creatinine Ratio 21.25; Blood Urea Nitrogen 17 mg/dL (7-17); Calcium 8.2 mg/dL (8.4-10.2); Carbon Dioxide 21 mmol/L (22-30); Chloride 106.3 mmol/L (98-107); Glucose 106 mg/dL (65-100); Potassium 4.8 mmol/L (3.6-5.0); Sodium 139 mmol/L (137-145)
[2016-03-10] MEDS ORDERED: TYLENOL ONE (07:29)
[2016-03-10] MEDS: TYLENOL PO PRN (07:37)
[2016-03-10] MEDS ORDERED: NACL 0.9% 250ML 250 ML ONE (09:13)
[2016-03-10] MEDS ORDERED: NACL 0.9% 250ML 250 ML IV ONE (09:17)
[2016-03-10] MEDS ORDERED: LOVENOX SUB-Q ONE (09:50)
[2016-03-10] MEDS ORDERED: PLAVIX ONE (09:50)
[2016-03-10] MEDS ORDERED: ASPIRIN ONE (09:50)
[2016-03-10] MEDS ORDERED: LOVENOX SUB-Q SCH (10:00)
--- NOTE | 2016-03-10 10:12 | Consultation ---
History of Present Illness - Reason for Consult Consult date: 03/10/16 acute renal failure - History of Present Illness Patient is a 40 year old WF with history significant for Obesity, A.fib s/p multiple ablations, multiple thromboembolic events and IVC filter s/p removed was sent to the emergency room from [facility] for evaluation of hypotension, chest pain, nausea, and dizziness. Her initial SBP was in 70s. Her initial creatinine was 2.2 and improved with IV fluids to 0.8 today. Patient is also being evaluated by vascular for possible palcement of IVC filter. She has had h/o PRINCESS in the past. No h/o Kidney stone or NSAID intake. She was treated multiple times for UTIs. Past History Past Medical History: atrial fib, DVT, PVD, other (chronic kidney disease, possible Lupus) Past Surgical History: Other (port placement, afib ablation ) Social history: denies: smoking, alcohol abuse, prescription drug abuse, IV drug use Family history: CAD Medications and Allergies Allergies Allergy/AdvReac Type Severity Reaction Status Date / Time Cephalosporins Allergy Anaphylaxis Verified 03/09/16 13:33 latex Allergy Anaphylaxis Verified 03/09/16 13:33 Sulfa (Sulfonamide Allergy Anaphylaxis Verified 03/09/16 13:33 Antibiotics) Home Medications Medication Instructions Recorded Confirmed Last Taken Type Aspirin [Aspirin TAB] 325 mg PO QDAY 03/09/16 03/09/16 Unknown History Clopidogrel [Plavix] 75 mg PO QDAY 03/09/16 03/09/16 Unknown History Diazepam Tab [Valium] 5 mg PO QHS PRN 03/09/16 03/09/16 Unknown History Gabapentin [Gralise] 300 mg PO DAILY 03/09/16 03/10/16 Unknown History Oxycodone HCl/Acetaminophen 1 each PO TID PRN 03/09/16 03/09/16 Unknown History [Percocet 10/325 mg] Quetiapine Fumarate [Seroquel] 100 mg PO QHS 03/09/16 03/09/16 Unknown History Tizanidine HCl [Zanaflex] 4 mg PO TID PRN 03/09/16 03/09/16 Unknown History Active Meds: Active Medications Acetaminophen (Tylenol) 650 mg PO Q4H PRN PRN Reason: pain Last Admin: 03/10/16 07:37 Dose: 650 mg Aspirin (Aspirin) 325 mg PO QDAY [facility] Clopidogrel Bisulfate (Plavix) 75 mg PO QDAY [facility] Enoxaparin Sodium (Lovenox) 30 mg SUB-Q QDAY [facility] Quetiapine Fumarate (Seroquel) 100 mg PO QHS [facility] Last Admin: 03/10/16 01:31 Dose: 100 mg Review of Systems Constitutional: weight gain, poor appetite, no fever, no chills Ears, nose, mouth and throat: sinus pressure, sinus pain, epistaxis Breasts: deferred Cardiovascular: lightheadedness, no edema, no leg edema Respiratory: no cough Gastrointestinal: no abdominal pain, no diarrhea, no melena Genitourinary Female: no dysuria, no hematuria Musculoskeletal: no frequent falls Integumentary: no rash Neurological: no head injury, no paralysis, no syncope Hematologic/Lymphatic: no easy bleeding Allergic/Immunologic: no urticaria Exam - Vital Signs Vital signs: Vital Signs Pulse Ox 100 03/09/16 13:07 - General Appearance General appearance: well-developed, well-nourished, obese, other (no distress) EENT: PERRL, mucous membranes moist, hearing intact, vision intact Neck: Present: neck supple Respiratory: Clear to Ascultation Heart: regular, S1S2 Gastrointestinal: Present: normoactive bowel sounds. Absent: tenderness, distended, guarding Integumentary: no rash, warm and dry Neurologic: no focal deficit, no asterixis, alert and oriented x3, CN 3-12 intact Musculoskeletal: Present: other (no edema) Psychiatric: mood/affect appropriate, cooperative Results - Lab Results 03/09/16 Unknown 03/10/16 07:00 Most recent lab results Calcium 8.2 mg/dL (8.4-10.2) L 03/10/16 07:00 - Image Kidney/bladder ultrasound: report reviewed Assessment and Plan - Patient Problems (1) PRINCESS (acute kidney injury) Current Visit: Yes Status: Acute Plan to address problem: Acute kidney Injury in the setting of hypotension. Kidney function has improved. Monitor renal function. (2) Hypotension Current Visit: Yes Status: Acute Qualifiers: Hypotension type: unspecified hypotension type Qualified Code(s): I95.9 - Hypotension, unspecified Plan to address problem: Etiology is unclear at this time. (3) Thromboembolic disorder Current Visit: Yes Status: Acute Plan to address problem: Followed by Vascular. (4) Atrial fibrillation Current Visit: Yes Status: Acute
[2016-03-10] MEDS: PLAVIX PO SCH (10:30)
[2016-03-10] MEDS: ASPIRIN PO SCH (10:34)
--- NOTE | 2016-03-10 10:43 | Progress Note ---
Assessment and Plan Assessment and plan: Hypotension. BP has been low and she has been given multiple bolus iv fluids. May need to transfer to ICU for pressors if this continues. Discussed with Cardiology. She has been admitted multiple times recently for similar complaint. Chest pain, atypical. Aspirin daily.Cardiology following. DVT prophylaxis with Lovenox. Full code status. Hospitalist Physical - Physical exam Narrative exam: Gen appearance : Not in acute distress, obese, HEENT: Normocephalic atraumatic, Neck: supple, no JVD. Lungs: clear to auscultation bilaterally, no crackles no wheezes Heart: S1 and S2 regular, no murmurs no gallop Abdomen: soft, non-tender, non-distended, normal bowel sounds Extremities: No edema, no clubbing or cyanosis Neuro : Awake alert oriented 3, no focal signs - Constitutional Vitals: Temp Pulse Resp BP Pulse Ox 97.9 F 55 L 10 L 82/54 97 03/10/16 07:11 03/10/16 10:00 03/10/16 10:00 03/10/16 10:00 03/10/16 10:00 General appearance: Present: no acute distress, well-nourished Results - Labs CBC & Chem 7: 03/09/16 Unknown 03/10/16 07:00 Labs: Laboratory Last Values WBC 10.9 K/mm3 (4.5-11.0) 03/09/16 Unknown RBC 4.17 M/mm3 (3.65-5.03) 03/09/16 Unknown Hgb 12.2 gm/dl (10.1-14.3) 03/09/16 Unknown Hct 37.1 % (30.3-42.9) 03/09/16 Unknown MCV 89 fl (79-97) 03/09/16 Unknown MCH 29 pg (28-32) 03/09/16 Unknown MCHC 33 % (30-34) 03/09/16 Unknown RDW 13.1 % (13.2-15.2) L 03/09/16 Unknown Plt Count 315 K/mm3 (140-440) 03/09/16 Unknown Lymph % (Auto) 22.3 % (13.4-35.0) 03/09/16 Unknown [place] % (Auto) 5.9 % (0.0-7.3) 03/09/16 Unknown Eos % (Auto) 1.1 % (0.0-4.3) 03/09/16 Unknown Baso % (Auto) 0.3 % (0.0-1.8) 03/09/16 Unknown Lymph # 2.4 K/mm3 (1.2-5.4) 03/09/16 Unknown [place] # 0.6 K/mm3 (0.0-0.8) 03/09/16 Unknown Eos # 0.1 K/mm3 (0.0-0.4) 03/09/16 Unknown Baso # 0.0 K/mm3 (0.0-0.1) 03/09/16 Unknown Seg Neutrophils % 70.4 % (40.0-70.0) H 03/09/16 Unknown Seg Neutrophils # 7.6 K/mm3 (1.8-7.7) 03/09/16 Unknown PT 13.6 Sec. (12.2-14.9) 03/09/16 Unknown INR 1.05 (0.87-1.13) 03/09/16 Unknown APTT 36.7 Sec. (24.2-36.6) H 03/09/16 Unknown D-Dimer 516.98 ng/mlDDU (0-234) H 03/09/16 Unknown Sodium 139 mmol/L (137-145) 03/10/16 07:00 Potassium 4.8 mmol/L (3.6-5.0) 03/10/16 07:00 Chloride 106.3 mmol/L (98-107) 03/10/16 07:00 Carbon Dioxide 21 mmol/L (22-30) L 03/10/16 07:00 Anion Gap 17 mmol/L 03/10/16 07:00 BUN 17 mg/dL (7-17) 03/10/16 07:00 Creatinine 0.8 mg/dL (0.7-1.2) D 03/10/16 07:00 Estimated GFR > 60 ml/min 03/10/16 07:00 BUN/Creatinine Ratio 21.25 % 03/10/16 07:00 Glucose 106 mg/dL (65-100) H 03/10/16 07:00 Calcium 8.2 mg/dL (8.4-10.2) L 03/10/16 07:00 Total Bilirubin 0.5 mg/dL (0.1-1.2) 03/09/16 Unknown AST 15 units/L (5-40) 03/09/16 Unknown ALT 16 units/L (7-56) 03/09/16 Unknown Alkaline Phosphatase 108 units/L (35-129) 03/09/16 Unknown Total Creatine Kinase 28 units/L (30-135) L 03/09/16 Unknown CK-MB (CK-2) < 1.0 ng/mL (0.0-4.0) 03/09/16 Unknown CK-MB (CK-2) Rel Index 3.5 (0-4) 03/09/16 Unknown Troponin T < 0.010 ng/mL (0.00-0.029) 03/09/16 Unknown Total Protein 7.1 g/dL (6.3-8.2) 03/09/16 Unknown Albumin 3.9 g/dL (3.9-5) 03/09/16 Unknown Albumin/Globulin Ratio 1.2 % 03/09/16 Unknown TSH 0.240 mlU/mL (0.270-4.200) L 03/09/16 Unknown Free T4 1.27 ng/dL (0.76-1.46) 03/09/16 16:40
[2016-03-10] MEDS ORDERED: NACL 0.9% 1000 ML 1,000 ML ONE (10:44)
[2016-03-10] MEDS: NACL 0.9% 1000 ML 1,000 ML IV SCH ×2 (11:00→22:57)
--- NOTE | 2016-03-10 11:39 | Progress Note ---
Addendum entered and electronically signed by BRANDON SALOMON MD 11:58: BP in 80s. Renal function has improved. VQ lung scan: Normal. Sinus rhythm. Needs IVC filter - to be placed again. Consult Vascular surgery. Maintenance IVF 75 ml/hour. Original Note: Assessment and Plan Postural hypotension continue IVF Atypical chest pain obtain echo V/Q scan negative for PE continue to observe on the monitor Hx. of atrial fibrillation s/p ablation (done in [place], [place]) Chronic kidney disease per nephrology Hx. of DVT/PE s/p IVC filter placement and removal will notify vascular ?Lupus Continue IV hydration and close monitoring of HR and blood pressure. Await echo findings. The patient has been seen in conjunction with Dr. Mcgee who agrees with the assessment and plan of care. Subjective Date of service: 03/10/16 Principal diagnosis: postural hypotension Interval history: The patient continue to c/o weakness, dizziness and fatigue. Sinus bradycardia on the monitor. Objective Last Vital Signs Temp 97.9 F 03/10/16 07:11 Pulse 47 L 03/10/16 11:00 Resp 17 03/10/16 11:00 BP 78/42 03/10/16 11:00 Pulse Ox 96 03/10/16 11:00 - Physical Examination General: No Apparent Distress HEENT: Positive: PERRL, Normocephaly, Mucus Membranes Moist Neck: Positive: neck supple, trachea midline Cardiac: Positive: Reg Rate and Rhythm, S1/S2 Lungs: Positive: clear to auscultation Neuro: Positive: Grossly Intact Abdomen: Positive: Soft, Active Bowel Sounds. Negative: Tender Skin: Positive: Clear. Negative: Rash Extremities: Present: normal. Absent: edema - Labs and Meds Cardiac Enzymes 03/09/16 Range/Units Unknown AST 15 (5-40) units/L CK-MB (CK-2) < 1.0 (0.0-4.0) ng/mL Coagulation 03/09/16 Range/Units Unknown PT 13.6 (12.2-14.9) Sec. INR 1.05 (0.87-1.13) APTT 36.7 H (24.2-36.6) Sec. CBC 03/09/16 Range/Units Unknown WBC 10.9 (4.5-11.0) K/mm3 RBC 4.17 (3.65-5.03) M/mm3 Hgb 12.2 (10.1-14.3) gm/dl Hct 37.1 (30.3-42.9) % Plt Count 315 (140-440) K/mm3 Lymph # 2.4 (1.2-5.4) K/mm3 [place] # 0.6 (0.0-0.8) K/mm3 Eos # 0.1 (0.0-0.4) K/mm3 Baso # 0.0 (0.0-0.1) K/mm3 Comprehensive Metabolic Panel 03/09/16 03/10/16 Range/Units Unknown 07:00 Sodium 139 139 (137-145) mmol/L Potassium 4.1 4.8 (3.6-5.0) mmol/L Chloride 99.5 106.3 (98-107) mmol/L Carbon Dioxide 25 21 L (22-30) mmol/L BUN 29 H 17 (7-17) mg/dL Creatinine 2.2 H 0.8 D (0.7-1.2) mg/dL Glucose 100 106 H (65-100) mg/dL Calcium 8.9 8.2 L (8.4-10.2) mg/dL AST 15 (5-40) units/L ALT 16 (7-56) units/L Alkaline Phosphatase 108 (35-129) units/L Total Protein 7.1 (6.3-8.2) g/dL Albumin 3.9 (3.9-5) g/dL - Imaging and Cardiology EKG: image reviewed Echo: pending - Telemetry EKG Rhythm: Sinus Bradycardia - EKG Sinus rhythms and dysrhythmias: sinus rhythm
[2016-03-10] MEDS ORDERED: NACL 0.9% 1000 ML 1,000 ML IV SCH (12:00)
[2016-03-10] MEDS ORDERED: INTROPIN DRIP 800 MG/D5W 250 ML 250 ML IV ONE (12:47)
[2016-03-10] MEDS: INTROPIN DRIP 800 MG/D5W 250 ML 250 ML IV SCH (13:15)
--- NOTE | 2016-03-10 15:13 | Consultation ---
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 Cardiology is evaluating her for hypotension and trying to workup the etiology, but asked vascular see the patient due to her extensive history of thromboembolic events. The patient had numerous prior thromboembolic events, and recalls having a thromboembolic event while being fully anticoagulated with Coumadin. The patient had a long-standing IVC filter until 2 years ago when she had an additional ablation and had to have an IVC filter removal. Since then, she has had 3 thromboembolic events, including 1 involving a pulmonary emboli to the lung which had her "thinking I had a heart attack." She is chronically difficult to anticoagulate due to financial reasons and due to difficulty obtaining blood for Coumadin monitoring. At this time, DVT study demonstrates no lower extremity thrombus. VQ scan demonstrates no pulmonary embolism. Past History Past Medical History: atrial fib, DVT, PVD, other (chronic kidney disease, possible Lupus) Past Surgical History: Other (port placement, afib ablation ) Social history: denies: smoking, alcohol abuse, prescription drug abuse, IV drug use Family history: CAD Medications and Allergies Allergies Allergy/AdvReac Type Severity Reaction Status Date / Time Cephalosporins Allergy Anaphylaxis Verified 03/09/16 13:33 latex Allergy Anaphylaxis Verified 03/09/16 13:33 Sulfa (Sulfonamide Allergy Anaphylaxis Verified 03/09/16 13:33 Antibiotics) Home Medications Medication Instructions Recorded Confirmed Last Taken Type Aspirin [Aspirin TAB] 325 mg PO QDAY 03/09/16 03/09/16 Unknown History Clopidogrel [Plavix] 75 mg PO QDAY 03/09/16 03/09/16 Unknown History Diazepam Tab [Valium] 5 mg PO QHS PRN 03/09/16 03/09/16 Unknown History Gabapentin [Gralise] 300 mg PO DAILY 03/09/16 03/10/16 Unknown History Oxycodone HCl/Acetaminophen 1 each PO TID PRN 03/09/16 03/09/16 Unknown History [Percocet 10/325 mg] Quetiapine Fumarate [Seroquel] 100 mg PO QHS 03/09/16 03/09/16 Unknown History Tizanidine HCl [Zanaflex] 4 mg PO TID PRN 03/09/16 03/09/16 Unknown History Active Meds: Active Medications Acetaminophen (Tylenol) 650 mg PO Q4H PRN PRN Reason: pain Last Admin: 03/10/16 07:37 Dose: 650 mg Aspirin (Aspirin) 325 mg PO QDAY [facility] Last Admin: 03/10/16 10:34 Dose: 325 mg Clopidogrel Bisulfate (Plavix) 75 mg PO QDAY [facility] Last Admin: 03/10/16 10:30 Dose: 75 mg Enoxaparin Sodium (Lovenox) 30 mg SUB-Q QDAY [facility] Last Admin: 03/10/16 10:34 Dose: 30 mg Sodium Chloride (Nacl 0.9% 1000 Ml) 1,000 mls @ 75 mls/hr IV DIRECT KENZIE Last Admin: 03/10/16 11:00 Dose: 75 mls/hr Dopamine HCl/Dextrose (Intropin Drip 800 Mg/D5w 250 Ml) 250 mls @ 4.238 mls/hr IV TITR KENZIE; 2 MCG/KG/MIN PRN Reason: Protocol Last Titration: 03/10/16 14:15 Dose: 2 mcg/kg/min Quetiapine Fumarate (Seroquel) 100 mg PO QHS [facility] Last Admin: 03/10/16 01:31 Dose: 100 mg Review of Systems All systems: negative (see HPI) Exam - Constitutional Vitals: Temp Pulse Resp BP Pulse Ox 97.9 F 66 21 95/42 97 03/10/16 07:11 03/10/16 14:45 03/10/16 14:45 03/10/16 14:45 03/10/16 14:45 General appearance: Present: no acute distress - Respiratory Respiratory effort: normal - Extremities Extremities: normal temperature, normal color - Psychiatric Psychiatric: appropriate mood/affect, cooperative Results - Labs CBC & Chem 7: 03/09/16 Unknown 03/10/16 07:00 Labs: Abnormal lab results 03/10/16 Range/Units 07:00 Carbon Dioxide 21 L (22-30) mmol/L Glucose 106 H (65-100) mg/dL Calcium 8.2 L (8.4-10.2) mg/dL Assessment and Plan 40-year-old female with hypercoagulable state and at least 15 prior thromboembolic events with at least 3 thromboembolic events since her IVC filter was removed 2 years ago in order to perform an additional cardiac ablation. She has had a thromboembolic event while being fully anticoagulated on Coumadin. She is chronically difficult to anticoagulate due to financial reasons preventing her from using Eliquis or Xarelto and difficulty monitoring Coumadin due to difficulty acquiring blood draws. I had a long discussion with her about the risks, benefits, and alternatives of a long-term IVC filter in including IVC filter fracture, IVC thrombosis, increased risk of DVT while having an IVC filter despite the decreased risk of pulmonary embolism. After a long discussion, the patient still wants to have an IVC filter. Discussed with her that she will require yearly x-rays in order to monitor the IVC filter. She will also need be chronically anticoagulated for life given her 15 prior thromboembolic events and hypercoagulable state with or without IVC filter. Consider Eliquis, or Xarelto depending on the cost for her insurance company. Alternatively, consider coumadin if she cannot be provided Xarelto or Eliquis due to cost. She now has a port which she will allow for blood draws. NPO after MN. IVC filter in AM.
[2016-03-10] MEDS ORDERED: NON-FORMULARY (Oxycodone Hcl/Acetaminophen [Percocet 10/325 Mg] 1 EACH) PO PRN (17:11)
[2016-03-10] MEDS ORDERED: ROXICODONE ONE (17:20)
[2016-03-10] MEDS ORDERED: PERCOCET 5/325 ONE (17:20)
[2016-03-10] MEDS: PERCOCET 5/325 PO PRN (17:24)
[2016-03-10] MEDS: ROXICODONE PO PRN (17:24)
[2016-03-11] MEDS: MORPHINE IV PRN ×4 (00:14→23:03)
[2016-03-11 06:18] LABS: Anion Gap 15 mmol/L; BUN/Creatinine Ratio 14.28; Blood Urea Nitrogen 10 mg/dL (7-17); Calcium 8.4 mg/dL (8.4-10.2); Carbon Dioxide 23 mmol/L (22-30); Glucose 118 mg/dL (65-100); Magnesium 1.9 mg/dL (1.7-2.3); Phosphorous 2.8 mg/dL (2.5-4.5); Potassium 4.1 mmol/L (3.6-5.0); Sodium 142 mmol/L (137-145)
--- NOTE | 2016-03-11 07:18 | Progress Note ---
Assessment and Plan - Patient Problems (1) PRINCESS (acute kidney injury) Current Visit: Yes Status: Acute Plan to address problem: Acute kidney Injury in the setting of hypotension. Kidney function has improved. Will follow the labs. (2) Hypotension Current Visit: Yes Status: Acute Qualifiers: Hypotension type: unspecified hypotension type Qualified Code(s): I95.9 - Hypotension, unspecified Plan to address problem: Patient is on Dopamine drip. (3) Thromboembolic disorder Current Visit: Yes Status: Acute Plan to address problem: Followed by Vascular. (4) Atrial fibrillation Current Visit: Yes Status: Acute Plan to address problem: SR now. Subjective Date of service: 03/11/16 Principal diagnosis: postural hypotension Interval history: Patient is feeling better. Objective - Vital Signs Vital signs: Vital Signs - 12hr 03/10/16 03/10/16 03/10/16 19:32 19:45 20:00 Temperature Pulse Rate 71 66 64 Pulse Rate [ Bilateral Radial] Pulse Rate [ Left Radial] Pulse Rate [ Right Radial] Respiratory 12 18 Rate Blood Pressure 87/46 93/45 74/25 O2 Sat by Pulse 99 96 Oximetry 03/10/16 03/10/16 03/10/16 20:15 20:19 20:30 Temperature Pulse Rate 73 67 89 Pulse Rate [ Bilateral Radial] Pulse Rate [ Left Radial] Pulse Rate [ Right Radial] Respiratory 13 15 21 Rate Blood Pressure 118/63 118/63 140/77 O2 Sat by Pulse 98 99 99 Oximetry 03/10/16 03/10/16 03/10/16 20:45 21:00 21:15 Temperature Pulse Rate 88 75 68 Pulse Rate [ Bilateral Radial] Pulse Rate [ Left Radial] Pulse Rate [ Right Radial] Respiratory 13 13 18 Rate Blood Pressure 122/65 111/64 117/58 O2 Sat by Pulse 98 99 98 Oximetry 03/10/16 03/11/16 03/11/16 21:40 00:00 01:00 Temperature 98.1 F 98.1 F Pulse Rate Pulse Rate [ 64 62 Bilateral Radial] Pulse Rate [ 60 Left Radial] Pulse Rate [ 60 Right Radial] Respiratory 18 16 Rate Blood Pressure 140/59 117/68 O2 Sat by Pulse Oximetry 03/11/16 03/11/16 03/11/16 02:00 03:00 03:56 Temperature 97.8 F Pulse Rate Pulse Rate [ 68 63 Bilateral Radial] Pulse Rate [ Left Radial] Pulse Rate [ 60 Right Radial] Respiratory 17 19 Rate Blood Pressure 119/59 106/55 O2 Sat by Pulse Oximetry 03/11/16 03/11/16 04:00 05:00 Temperature 98.8 F Pulse Rate Pulse Rate [ 70 67 Bilateral Radial] Pulse Rate [ Left Radial] Pulse Rate [ Right Radial] Respiratory 17 16 Rate Blood Pressure 126/63 106/55 O2 Sat by Pulse Oximetry - General Appearance General appearance: well-developed, well-nourished, obese, other (no distress) EENT: PERRL, mucous membranes moist, hearing intact, vision intact Neck: no JVD, supple Respiratory: Present: Clear to Ascultation Cardiology: regular, S1S2, no murmurs Gastrointestinal: normoactive bowel sounds, no tenderness, no distended, no guarding Integumentary: no rash, warm and dry Neurologic: no focal deficit, no asterixis, alert and oriented x3, CN 3-12 intact Musculoskeletal: other (no edema) Psychiatric: mood/affect appropriate, cooperative - Lab 03/09/16 Unknown 03/11/16 05:00 Most recent lab results Calcium 8.4 mg/dL (8.4-10.2) 03/11/16 05:00 Phosphorus 2.8 mg/dL (2.5-4.5) 03/11/16 05:00 Magnesium 1.9 mg/dL (1.7-2.3) 03/11/16 05:00
--- NOTE | 2016-03-11 08:54 | Progress Note ---
Addendum entered and electronically signed by BRANDON SALOMON MD 11:10: BP improved on Dopamine. Echo: Normal LVEF of 55 to 60%.Normal RV size & function.Mild pul.hypertension.No pericardial effusion.Serum cortisol level: pending. Awaiting IVC filter placement today by Vascular surgery. Original Note: Assessment and Plan Postural hypotension continue IVF dopamine gtt at 3mcg/kg/min V/Q scan negative for PE await echo findings Atypical chest pain Hx. of atrial fibrillation s/p ablation (done in [place], [place]) Chronic kidney disease renal indices normal today per nephrology Hx. of DVT/PE awaiting IVC filter placement today per vascular ?Lupus The patient has been seen in conjunction with Dr. Mcgee who agrees with the assessment and plan of care. Subjective Date of service: 03/11/16 Principal diagnosis: postural hypotension Interval history: The patient is resting in bed. She remains dizzy with ambulation. Dopamine gtt at 3mcg/kg/min. Sinus rhythm on the monitor. Awaiting IVC filter placement this morning. Objective Last Vital Signs Temp 97.7 F 03/11/16 07:50 Pulse 67 03/11/16 05:00 Resp 16 03/11/16 05:00 BP 106/55 03/11/16 05:00 Pulse Ox 98 03/10/16 21:15 - Physical Examination General: No Apparent Distress HEENT: Positive: PERRL, Normocephaly, Mucus Membranes Moist Neck: Positive: neck supple Cardiac: Positive: Reg Rate and Rhythm, S1/S2 Lungs: Positive: clear to auscultation Neuro: Positive: Grossly Intact Abdomen: Positive: Soft, Active Bowel Sounds. Negative: Tender Skin: Positive: Clear. Negative: Rash Extremities: Present: normal. Absent: edema - Labs and Meds Comprehensive Metabolic Panel 03/11/16 Range/Units 05:00 Sodium 142 (137-145) mmol/L Potassium 4.1 (3.6-5.0) mmol/L Chloride 108.0 H (98-107) mmol/L Carbon Dioxide 23 (22-30) mmol/L BUN 10 (7-17) mg/dL Creatinine 0.7 (0.7-1.2) mg/dL Glucose 118 H (65-100) mg/dL Calcium 8.4 (8.4-10.2) mg/dL - Imaging and Cardiology EKG: image reviewed Echo: pending - Telemetry EKG Rhythm: Sinus Rhythm - EKG Sinus rhythms and dysrhythmias: sinus rhythm
[2016-03-11] MEDS: ASPIRIN PO SCH (10:00)
[2016-03-11] MEDS: PLAVIX PO SCH (10:00)
[2016-03-11] MEDS: LOVENOX SUB-Q SCH (10:00)
--- NOTE | 2016-03-11 10:19 | Echocardiography Report ---
Transthoracic Echocardiogram Indication: Hypotension BP: 90/57 Conclusions *Global left ventricular systolic function is normal. *The estimated ejection fraction is 55-60%. *The left atrium is normal in size with no visual thrombus identified. *The right ventricular cavity size is normal. *The right ventricular global systolic function is normal. *The interatrial septum appears normal. *Mild aortic leaflet calcification is visualized. *There is mild aortic stenosis. *The mean gradient of the aortic valve is 15 mmHg. *There is trace of mitral regurgitation. *There is mild tricuspid regurgitation. *The right ventricular systolic pressure is calculated at 37 mmHg. *There is evidence of mild pulmonary hypertension. *There is no pericardial effusion. *There is no dilatation of the aortic root. *There is no dilatation of the ascending aorta. *The inferior vena cava appears normal in size. Findings Left Ventricle: The left ventricular chamber size is normal. Global left ventricular wall motion and contractility are within normal limits. Global left ventricular systolic function is normal. The estimated ejection fraction is 55-60%. Normal left ventricular diastolic filling is observed. Left Atrium: The left atrium is normal in size with no visual thrombus identified. Right Ventricle: The right ventricular cavity size is normal. The right ventricular global systolic function is normal. Right Atrium: The right atrium appears normal. The interatrial septum appears normal. Aortic Valve: The aortic valve leaflets are mildly thickened. Mild aortic leaflet calcification is visualized. There is mild aortic stenosis. The mean gradient of the aortic valve is 15 mmHg. The peak instantaneous gradient of the aortic valve is 28 mmHg. Mitral Valve: The mitral valve leaflets appear normal. There is trace of mitral regurgitation. There is no evidence of mitral stenosis. Tricuspid Valve: The tricuspid valve leaflets are normal. There is mild tricuspid regurgitation. The right ventricular systolic pressure is calculated at 37 mmHg. There is evidence of mild pulmonary hypertension. There is no tricuspid stenosis. Pulmonic Valve: The pulmonic valve appears normal. There is trace pulmonic regurgitation. There is no pulmonic stenosis. Pericardium: There is no pericardial effusion. Aorta: There is no dilatation of the ascending aorta. There is no dilatation of the aortic arch. There is no dilatation of the descending thoracic aorta. There is no dilatation of the aortic root. Venous: The inferior vena cava appears normal in size. Measurements Chambers MM Name Value Normal Range Ao root diameter (MM) 3 cm (2 - 3.7) LA dimension (AP) MM 3.6 cm (1.9 - 4) LA:Ao ratio (MM) 1.2 ratio - AV cusp separation (MM) 1.7 cm (1.5 - 2.6) Chambers 2D Name Value Normal Range IVSd (2D) 1.06 cm (0.6 - 1.1) LVPWd (2D) 1.01 cm (0.6 - 1.1) IVS:LVPW ratio (2D) 1.05 ratio - LVIDd (2D) 4.91 cm (3.7 - 5.6) LVIDs (2D) 2.88 cm (2 - 3.8) LV FS (Teichholz) (2D) 41.3 % - LV FS (cube) (2D) 41.3 % - EF Teichholz (2D) 71.9 % - Ao root diameter (2D) 3.3 cm (2 - 3.7) LA dimension (AP) 2D 4.1 cm (1.9 - 4) LA:Ao ratio (2D) 1.24 ratio - Volumes/Mass Name Value Normal Range LA ESV SP 4CH (MOD) 41 ml - LA ESV SP 2CH (MOD) 32 ml - LA ESV BP (MOD) 39 ml - LA ESV BP (MOD) index 23.6 ml/m2 - Diastolic/Systolic Function Name Value Normal Range MV E-wave Vmax 1.14 m/sec - MV deceleration time 218 msec - MV A-wave Vmax 0.88 m/sec - MV E:A ratio 1.3 ratio - LV septal e' Vmax 0.1 m/sec - LV lateral e' Vmax 0.14 m/sec - LV E:e' septal ratio 11.7 ratio - LV E:e' lateral ratio 8.4 ratio - Aortic Valve Name Value Normal Range AV VTI 44.3 cm - AV peak gradient 28 mmHg - AV mean gradient 15 mmHg - LVOT diameter 2 cm - LVOT VTI 36 cm - LVOT mean gradient 8 mmHg - SV LVOT 113 ml - WILD (continuity VTI) 2.55 cm2 - Mitral Valve Name Value Normal Range MV PHT 53 msec - MR Vmax 3.87 m/sec - MVA (PHT) 4.15 cm2 - Tricuspid Valve Name Value Normal Range TR Vmax 2.91 m/sec - TR peak gradient 34 mmHg - RAP 3 mmHg - RVSP 37 mmHg - Pulmonic Valve/Qp:Qs Name Value Normal Range PV Vmax 1.86 m/sec - PV peak gradient 14 mmHg - MS end-diastolic Vmax 1.44 m/sec - PV acceleration time 120 msec -
--- NOTE | 2016-03-11 10:37 | Progress Note ---
Assessment and Plan Assessment and plan: Hypotension. BP was low and she was given multiple bolus iv fluids. Blood pressure remained low so she was eventually started on dopamine and transferred to intensive care unit. Currently blood pressure is low normal on dopamine. Discussed with Cardiology. She has been admitted multiple times recently for similar complaint. Serum cortisol level ordered Chest pain, atypical. Aspirin daily.Cardiology following. Acute kidney injury. Now resolved. Creatinine 0.7 today down from 2.2 on admission 2 days ago History of pulmonary embolism and DVT about 6 months ago. V/Q scan was negative this admission. For IVC placement today DVT prophylaxis with Lovenox. Full code status. History Interval history: less chest pain, dizziness, still in ICU Hospitalist Physical - Physical exam Narrative exam: Gen appearance : Not in acute distress, obese, HEENT: Normocephalic atraumatic, Neck: supple, no JVD. Lungs: clear to auscultation bilaterally, no crackles no wheezes Heart: S1 and S2 regular, no murmurs no gallop Abdomen: soft, non-tender, non-distended, normal bowel sounds Extremities: No edema, no clubbing or cyanosis Neuro : Awake alert oriented 3, no focal signs - Constitutional Vitals: Temp Pulse Resp BP Pulse Ox 97.7 F 67 16 106/55 98 03/11/16 07:50 03/11/16 05:00 03/11/16 05:00 03/11/16 05:00 03/10/16 21:15 General appearance: Present: no acute distress, well-nourished Results - Labs CBC & Chem 7: 03/09/16 Unknown 03/11/16 05:00 Labs: Laboratory Last Values WBC 10.9 K/mm3 (4.5-11.0) 03/09/16 Unknown RBC 4.17 M/mm3 (3.65-5.03) 03/09/16 Unknown Hgb 12.2 gm/dl (10.1-14.3) 03/09/16 Unknown Hct 37.1 % (30.3-42.9) 03/09/16 Unknown MCV 89 fl (79-97) 03/09/16 Unknown MCH 29 pg (28-32) 03/09/16 Unknown MCHC 33 % (30-34) 03/09/16 Unknown RDW 13.1 % (13.2-15.2) L 03/09/16 Unknown Plt Count 315 K/mm3 (140-440) 03/09/16 Unknown Lymph % (Auto) 22.3 % (13.4-35.0) 03/09/16 Unknown Gaston % (Auto) 5.9 % (0.0-7.3) 03/09/16 Unknown Eos % (Auto) 1.1 % (0.0-4.3) 03/09/16 Unknown Baso % (Auto) 0.3 % (0.0-1.8) 03/09/16 Unknown Lymph # 2.4 K/mm3 (1.2-5.4) 03/09/16 Unknown Gaston # 0.6 K/mm3 (0.0-0.8) 03/09/16 Unknown Eos # 0.1 K/mm3 (0.0-0.4) 03/09/16 Unknown Baso # 0.0 K/mm3 (0.0-0.1) 03/09/16 Unknown Seg Neutrophils % 70.4 % (40.0-70.0) H 03/09/16 Unknown Seg Neutrophils # 7.6 K/mm3 (1.8-7.7) 03/09/16 Unknown PT 13.6 Sec. (12.2-14.9) 03/09/16 Unknown INR 1.05 (0.87-1.13) 03/09/16 Unknown APTT 36.7 Sec. (24.2-36.6) H 03/09/16 Unknown D-Dimer 516.98 ng/mlDDU (0-234) H 03/09/16 Unknown Sodium 142 mmol/L (137-145) 03/11/16 05:00 Potassium 4.1 mmol/L (3.6-5.0) 03/11/16 05:00 Chloride 108.0 mmol/L (98-107) H 03/11/16 05:00 Carbon Dioxide 23 mmol/L (22-30) 03/11/16 05:00 Anion Gap 15 mmol/L 03/11/16 05:00 BUN 10 mg/dL (7-17) 03/11/16 05:00 Creatinine 0.7 mg/dL (0.7-1.2) 03/11/16 05:00 Estimated GFR > 60 ml/min 03/11/16 05:00 BUN/Creatinine Ratio 14.28 % 03/11/16 05:00 Glucose 118 mg/dL (65-100) H 03/11/16 05:00 Calcium 8.4 mg/dL (8.4-10.2) 03/11/16 05:00 Phosphorus 2.8 mg/dL (2.5-4.5) 03/11/16 05:00 Magnesium 1.9 mg/dL (1.7-2.3) 03/11/16 05:00 Total Bilirubin 0.5 mg/dL (0.1-1.2) 03/09/16 Unknown AST 15 units/L (5-40) 03/09/16 Unknown ALT 16 units/L (7-56) 03/09/16 Unknown Alkaline Phosphatase 108 units/L (35-129) 03/09/16 Unknown Total Creatine Kinase 28 units/L (30-135) L 03/09/16 Unknown CK-MB (CK-2) < 1.0 ng/mL (0.0-4.0) 03/09/16 Unknown CK-MB (CK-2) Rel Index 3.5 (0-4) 03/09/16 Unknown Troponin T < 0.010 ng/mL (0.00-0.029) 03/09/16 Unknown Total Protein 7.1 g/dL (6.3-8.2) 03/09/16 Unknown Albumin 3.9 g/dL (3.9-5) 03/09/16 Unknown Albumin/Globulin Ratio 1.2 % 03/09/16 Unknown TSH 0.240 mlU/mL (0.270-4.200) L 03/09/16 Unknown Free T4 1.27 ng/dL (0.76-1.46) 03/09/16 16:40
--- NOTE | 2016-03-11 11:33 | Consultation ---
History of Present Illness - Reason for Consult Consult date: 03/11/16 Hypotension of unknown etiology Requesting physician: KIMANI BOYER - History of Present Illness 40 y/o female with history of afib and DVT, prior IVC filter and unable to be compliant with anticoagulation admitted from the ED with hypotension and vasopressor requirement. Seen in [facility] office with hypotension. Sent to Ed for orthostatics. Not sure if these were done. Started on some IVF's and dopamine. Per patient, admitted twice at [facility] recently with the same things. She states that no diagnosis was made and that she was seeking help from [facility]. They did check a cortisol level that was low but patient was not started on mineralocorticoids. Per patient she was sent on Midodrine 10 TID. Remainder is negative with the exeption of fatigue. Per patient her TFT's were also checked and normal. Past History Past Medical History: atrial fib, DVT, PVD, other (chronic kidney disease, possible Lupus) Past Surgical History: Other (port placement, afib ablation ) Social history: denies: smoking, alcohol abuse, prescription drug abuse, IV drug use Family history: CAD Medications and Allergies Allergies Allergy/AdvReac Type Severity Reaction Status Date / Time Cephalosporins Allergy Anaphylaxis Verified 03/09/16 13:33 latex Allergy Anaphylaxis Verified 03/09/16 13:33 Sulfa (Sulfonamide Allergy Anaphylaxis Verified 03/09/16 13:33 Antibiotics) Home Medications Medication Instructions Recorded Confirmed Last Taken Type Aspirin [Aspirin TAB] 325 mg PO QDAY 03/09/16 03/09/16 Unknown History Clopidogrel [Plavix] 75 mg PO QDAY 03/09/16 03/09/16 Unknown History Diazepam Tab [Valium] 5 mg PO QHS PRN 03/09/16 03/09/16 Unknown History Gabapentin [Gralise] 300 mg PO DAILY 03/09/16 03/10/16 Unknown History Oxycodone HCl/Acetaminophen 1 each PO TID PRN 03/09/16 03/09/16 Unknown History [Percocet 10/325 mg] Quetiapine Fumarate [Seroquel] 100 mg PO QHS 03/09/16 03/09/16 Unknown History Tizanidine HCl [Zanaflex] 4 mg PO TID PRN 03/09/16 03/09/16 Unknown History Active Meds: Active Medications Acetaminophen (Tylenol) 650 mg PO Q4H PRN PRN Reason: pain Last Admin: 03/10/16 07:37 Dose: 650 mg Aspirin (Aspirin) [address] [facility] Last Admin: 03/10/16 10:34 Dose: 325 mg Clopidogrel Bisulfate (Plavix) [address] [facility] Last Admin: 03/10/16 10:30 Dose: 75 mg Enoxaparin Sodium (Lovenox) 40 mg SUB-Q QDAY@1000 KENZIE Sodium Chloride (Nacl 0.9% 1000 Ml) 1,000 mls @ 75 mls/hr IV DIRECT KENZIE Last Admin: 03/10/16 22:57 Dose: 75 mls/hr Dopamine HCl/Dextrose (Intropin Drip 800 Mg/D5w 250 Ml) 250 mls @ 4.238 mls/hr IV TITR KENZIE; 2 MCG/KG/MIN PRN Reason: Protocol Last Titration: 03/10/16 20:37 Dose: 3 mcg/kg/min Morphine Sulfate (Morphine) 2 mg IV Q3H PRN PRN Reason: Pain, Moderate (4-6) Last Admin: 03/11/16 04:29 Dose: 2 mg Oxycodone HCl (Roxicodone) 5 mg PO TID PRN PRN Reason: Pain, Moderate (4-6) Last Admin: 03/10/16 17:24 Dose: 5 mg Oxycodone/Acetaminophen (Percocet 5/325) 1 tab PO TID PRN PRN Reason: Pain, Moderate (4-6) Last Admin: 03/10/16 17:24 Dose: 1 tab Quetiapine Fumarate (Seroquel) [address] [facility] Last Admin: 03/10/16 22:53 Dose: 100 mg Review of Systems All systems: negative Constitutional: fatigue Exam - Constitutional Vitals: Temp Pulse Resp BP Pulse Ox 97.7 F 67 16 106/55 98 03/11/16 07:50 03/11/16 05:00 03/11/16 05:00 03/11/16 05:00 03/10/16 21:15 General appearance: Present: no acute distress, well-nourished, obese - EENT Eyes: Present: PERRL, EOM intact ENT: hearing intact, clear oral mucosa, dentition normal - Neck Neck: Present: supple, normal ROM - Respiratory Respiratory effort: normal Respiratory: bilateral: CTA - Cardiovascular Rhythm: regular Heart Sounds: Present: S1 & S2 - Extremities Extremities: no ischemia, pulses intact, pulses symmetrical - Abdominal General gastrointestinal: Present: soft, non-tender, normal bowel sounds Female genitourinary: Present: deferred - Rectal Rectal Exam: deferred - Musculoskeletal Musculoskeletal: strength equal bilaterally - Psychiatric Psychiatric: appropriate mood/affect Results - Labs CBC & Chem 7: 03/09/16 Unknown 03/11/16 05:00 Labs: Abnormal lab results 03/11/16 Range/Units 05:00 Chloride 108.0 H (98-107) mmol/L Glucose 118 H (65-100) mg/dL Assessment and Plan 40 y/o female with hypotension, CKD, hypercoaguable state and what I am assuming is newly diagnosed pulmonary hypertension admitted with hypotension. 1. Per patient last cortisol drawn at [facility] was 4, while she was hypotensive on dopamine at 6am. Given that it is late morning unable to give cosyntropin stem test at this time. Will start Hydrocortisone 100mg IV q8 with first dose now and wean dopamine for MAP's greater than 65. If successful, then will need outpatient therapy with florinef 2. Pulm HTN in a non smoker, no history of sleep apnea and no evidence of chronic hypoxemia and normal EF. Need to work up for possible chronic thromboembolic disease, as well as autoimmune diseases as well. With this info , need to obtain echo from outside if done. If pulm HTN was present then, patient would need a right heart catherization. Patient has had a V/Q that has been read as homegeneous which is opposite of the mottled appearance usually described with CTEPH. 3. Will discuss case with cards and see if RHC can be done while in house. Patient will need autoimmune work up CCt 31 minutes
[2016-03-11] MEDS ORDERED: HEPARIN/NS 5000 UNIT/500ML(CATH LAB) 500 ML IR ONE (12:53)
[2016-03-11] MEDS ORDERED: XYLOCAINE 1%/ EPI 1:100,000 INFILTRATI ONE (12:53)
[2016-03-11] MEDS ORDERED: NACL 0.9% 1000 ML 1,000 ML ONE ×2 (12:53→13:05)
[2016-03-11] MEDS ORDERED: ANCEF/STERILE WATER 2 GM/20 ML 20 ML IV ONE (12:53)
[2016-03-11] MEDS ORDERED: HEPARIN 10,000 UNITS/10 ML ONE (12:54)
[2016-03-11] MEDS: SUBLIMAZE ONE ×2 (13:10→13:15)
[2016-03-11] MEDS: VERSED ONE ×3 (13:10→13:17)
--- NOTE | 2016-03-11 13:30 | Operative Report ---
Operative Report Operative Report: EXAM: Ultrasound guided access of the right common femoral vein IVC filter placement and inferior venacava venography DATE: 03/11/16 INDICATION: Patient with chronic hypercoagulable condition with 15 prior thromboembolic events with 3 thromboembolic events since IVC filter removed for a cardiac ablation procedure. She has had thromboembolic events while being fully anticoagulated. She has difficulty obtaining anticoagulation due to difficulty obtaining lab work for Coumadin follow-up, and cannot financially afford the novel anticoagulants. Long discussion was had with the patient who requested IVC filter which is reasonable given these issues. Discussed with her that she will need long-term anticoagulation with or without filter. MEDICATIONS: Continuous cardiopulmonary monitoring was performed during this procedure. Please review the nursing record for a list of all medications. DEVICES: Retrievable Bard Rayne IVC filter. INFORMATION SYSTEMS SECURITY DEVELOPER: ANA VOGEL MD CONTRAST: 35 mLs of nonionic contrast PROCEDURE: The risks, benefits, and alternatives were discussed; written informed consent was obtained. The patient was transported to the angiography suite in stable condition. The patient was transported on the table and the right common femoral vein was assessed with ultrasound to ensure patency. The patient was prepped and draped in a sterile fashion. The right common femoral vein was accessed with an 21-gauge needle under direct ultrasound guidance. 0.018 inch wire was advanced through the needle and the needle was exchanged for a transitional dilation. Inner dilator and wire was removed. 0.035 inch wire was passed into the inferior vena cava. The transitional dilator was exchanged for a 5 Ugandan sheath and a 5 Ugandan pigtail catheter was advanced over the wire and passed into the inferior vena cava. The table was locked. Digital subtraction venography was performed. The pigtail was removed over a 0.035 inch wire and the sheath was removed over the wire. The IVC filter sheath and introducer were advanced over the wire under direct fluoroscopic guidance. The wire and introducer were removed. The IVC filter deployment system was advanced through the sheath and properly positioned under fluoroscopic guidance. The IVC filter was deployed under direct fluoroscopic guidance. Venography was performed through the sheath to confirm position. The deployment system, and sheath were removed. Pressure was held until hemostasis was achieved. The patient was transferred from the angiography suite in stable condition. FINDINGS: 1. Under direct ultrasound guidance, the right common femoral vein was accessed with a 21-gauge needle. 2. Digital subtraction venography of the inferior vena cava demonstrates no evidence of inferior vena cava thrombus. The inferior vena cava is normal in size. Renal vein inflow is visualized. The inferior vena cava is adequate to accommodate an IVC filter. 3. Bard [place] IVC filter is properly positioned, below the renal veins and above the iliocaval confluence. IMPRESSION: Successful placement of a retrievable Bard Y[place] IVC filter. No evidence of caval thrombus.
[2016-03-12] MEDS: MORPHINE IV PRN ×4 (03:39→21:28)
[2016-03-12] MEDS: NACL 0.9% 1000 ML 1,000 ML IV SCH ×2 (03:41→17:41)
[2016-03-12] MEDS: INTROPIN DRIP 800 MG/D5W 250 ML 250 ML IV SCH (04:45)
[2016-03-12] MEDS: PERCOCET 5/325 PO PRN (04:55)
[2016-03-12] MEDS: ROXICODONE PO PRN (04:56)
[2016-03-12 05:41] LABS: Hematocrit 34.8 % (30.3-42.9); Hemoglobin 11.8 gm/dl (10.1-14.3); Mean Corpuscular HGB Conc 34 % (30-34); Mean Corpuscular Hemoglobin 29 pg (28-32); Platelet Count 291 K/mm3 (140-440); Red Blood Count 4.05 M/mm3 (3.65-5.03); Red Cell Distribution Width 12.9 % (13.2-15.2); White Blood Count 6.9 K/mm3 (4.5-11.0)
[2016-03-12 05:45] LABS: Mean Corpuscular Volume 87 fl (79-97)
[2016-03-12 05:46] LABS: Blood Urea Nitrogen 6 mg/dL (7-17); Calcium 9.2 mg/dL (8.4-10.2); Carbon Dioxide 25 mmol/L (22-30); Chloride 103.8 mmol/L (98-107); Glucose 134 mg/dL (65-100); Potassium 4.1 mmol/L (3.6-5.0); Sodium 143 mmol/L (137-145)
[2016-03-12 05:52] LABS: Anion Gap 18 mmol/L
--- NOTE | 2016-03-12 07:45 | Vascular Lab Report ---
LOWER EXTREMITY VENOUS DUPLEX: REASON FOR EXAM: Followup history of DVT and PE. COMMENTS ON THE RIGHT: All veins visualized are freely compressible without evidence of internal echogenicity. Flow is spontaneous and phasic throughout. COMMENTS ON THE LEFT: All veins visualized are freely compressible without evidence of internal echogenicity. Flow is spontaneous and phasic throughout. IMPRESSION: No evidence of acute or chronic deep venous thrombosis in either lower extremity.
--- NOTE | 2016-03-12 07:55 | Vascular Lab Report ---
MISCELLANEOUS VESSEL IDENTIFICATION: COMMENTS ON THE SCAN: The right common femoral vein was identified and under real-time ultrasound guidance was cannulated. IMPRESSION: Successful ultrasound guided vein cannulation.
--- NOTE | 2016-03-12 08:34 | Progress Note ---
Addendum entered and electronically signed by BRANDON SALOMON MD 10:41: Dopamine dcd.On IV steroids.S/P IVC filter placement.She tolerated the procedure well. BP 102 systolic. Original Note: Assessment and Plan Postural hypotension continue IVF wean dopamine gtt to maintain MAP > 65 Echo 02/2016: EF 55-60%, RVSP 37mmHg V/Q scan negative for PE high dose steroids added per Dr. Guillen Atypical chest pain Hx. of atrial fibrillation s/p ablation (done in [place], [place]) Chronic kidney disease renal indices normal today per nephrology Hx. of DVT/PE s/p IVC filter placement 03/11 per vascular ?Lupus BP improved with the addition of high dose steroids. Wean dopamine and repeat orthostatics. The patient has been seen in conjunction with Dr. Mcgee who agrees with the assessment and plan of care. Subjective Date of service: 03/12/16 Principal diagnosis: postural hypotension Interval history: The patient is resting in bed. Still very fatigued. Dopamine gtt at 3mcg/kg/ min. Sinus rhythm on the monitor. Objective Last Vital Signs Temp 98.2 F 03/12/16 07:36 Pulse 81 03/12/16 08:15 Resp 17 03/12/16 08:15 BP 170/86 03/12/16 08:15 Pulse Ox 99 03/12/16 08:15 - Physical Examination General: No Apparent Distress HEENT: Positive: PERRL, Normocephaly, Mucus Membranes Moist Neck: Positive: neck supple Cardiac: Positive: Reg Rate and Rhythm, S1/S2 Lungs: Positive: clear to auscultation Neuro: Positive: Grossly Intact Abdomen: Positive: Soft, Active Bowel Sounds. Negative: Tender Skin: Positive: Clear. Negative: Rash Extremities: Present: normal. Absent: edema - Labs and Meds CBC 03/12/16 Range/Units 04:50 WBC 6.9 (4.5-11.0) K/mm3 RBC 4.05 (3.65-5.03) M/mm3 Hgb 11.8 (10.1-14.3) gm/dl Hct 34.8 (30.3-42.9) % Plt Count 291 (140-440) K/mm3 Comprehensive Metabolic Panel 03/12/16 Range/Units 04:50 Sodium 143 (137-145) mmol/L Potassium 4.1 (3.6-5.0) mmol/L Chloride 103.8 (98-107) mmol/L Carbon Dioxide 25 (22-30) mmol/L BUN 6 L (7-17) mg/dL Creatinine 0.6 L (0.7-1.2) mg/dL Glucose 134 H (65-100) mg/dL Calcium 9.2 (8.4-10.2) mg/dL - Imaging and Cardiology EKG: image reviewed Echo: report reviewed (02/2016: EF 55-60%, RVSP 37mmHg) - Telemetry EKG Rhythm: Sinus Rhythm - EKG Sinus rhythms and dysrhythmias: sinus rhythm
[2016-03-12] MEDS: ASPIRIN PO SCH (09:47)
[2016-03-12] MEDS: LOVENOX SUB-Q SCH (09:48)
[2016-03-12] MEDS: PLAVIX PO SCH (09:55)
--- NOTE | 2016-03-12 10:09 | Progress Note ---
Assessment and Plan Assessment and plan: Hypotension. BP was low and she was given multiple bolus iv fluids, and started on Dopamine.and transferred to intensive care unit. Currently blood pressure is normal systolic BP of 150s on dopamine. Discussed with Cardiology and Pulmonology. Discontinue dopamine. She was started on trial of steroids- Hydrocortisone yesterday. She has been admitted multiple times recently for similar complaint. Serum cortisol level ordered Chest pain, atypical. Aspirin daily.Cardiology following. Acute kidney injury. Now resolved. Creatinine 0.6 today down from 2.2 on admission 3 days ago History of pulmonary embolism and DVT about 6 months ago. V/Q scan was negative this admission. s/p IVC placement yesterday. DVT prophylaxis with Lovenox. Full code status. History Interval history: less chest pain, less dizziness, Hospitalist Physical - Physical exam Narrative exam: Gen appearance : Not in acute distress, obese, HEENT: Normocephalic atraumatic, Neck: supple, no JVD. Lungs: clear to auscultation bilaterally, no crackles no wheezes Heart: S1 and S2 regular, no murmurs no gallop Abdomen: soft, non-tender, non-distended, normal bowel sounds Extremities: No edema, no clubbing or cyanosis Neuro : Awake alert oriented 3, no focal signs,moves all ext - Constitutional Vitals: Temp Pulse Resp BP Pulse Ox 98.2 F 81 17 170/86 99 03/12/16 07:36 03/12/16 08:15 03/12/16 08:15 03/12/16 08:15 03/12/16 08:15 General appearance: Present: no acute distress, well-nourished Results - Labs CBC & Chem 7: 03/12/16 04:50 03/12/16 04:50 Labs: Laboratory Last Values WBC 6.9 K/mm3 (4.5-11.0) 03/12/16 04:50 RBC 4.05 M/mm3 (3.65-5.03) 03/12/16 04:50 Hgb 11.8 gm/dl (10.1-14.3) 03/12/16 04:50 Hct 34.8 % (30.3-42.9) 03/12/16 04:50 MCV 87 fl (79-97) 03/12/16 04:50 MCH 29 pg (28-32) 03/12/16 04:50 MCHC 34 % (30-34) 03/12/16 04:50 RDW 12.9 % (13.2-15.2) L 03/12/16 04:50 Plt Count 291 K/mm3 (140-440) 03/12/16 04:50 Lymph % (Auto) 22.3 % (13.4-35.0) 03/09/16 Unknown Zavala % (Auto) 5.9 % (0.0-7.3) 03/09/16 Unknown Eos % (Auto) 1.1 % (0.0-4.3) 03/09/16 Unknown Baso % (Auto) 0.3 % (0.0-1.8) 03/09/16 Unknown Lymph # 2.4 K/mm3 (1.2-5.4) 03/09/16 Unknown Zavala # 0.6 K/mm3 (0.0-0.8) 03/09/16 Unknown Eos # 0.1 K/mm3 (0.0-0.4) 03/09/16 Unknown Baso # 0.0 K/mm3 (0.0-0.1) 03/09/16 Unknown Seg Neutrophils % 70.4 % (40.0-70.0) H 03/09/16 Unknown Seg Neutrophils # 7.6 K/mm3 (1.8-7.7) 03/09/16 Unknown PT 13.6 Sec. (12.2-14.9) 03/09/16 Unknown INR 1.05 (0.87-1.13) 03/09/16 Unknown APTT 36.7 Sec. (24.2-36.6) H 03/09/16 Unknown D-Dimer 516.98 ng/mlDDU (0-234) H 03/09/16 Unknown Sodium 143 mmol/L (137-145) 03/12/16 04:50 Potassium 4.1 mmol/L (3.6-5.0) 03/12/16 04:50 Chloride 103.8 mmol/L (98-107) 03/12/16 04:50 Carbon Dioxide 25 mmol/L (22-30) 03/12/16 04:50 Anion Gap 18 mmol/L 03/12/16 04:50 BUN 6 mg/dL (7-17) L 03/12/16 04:50 Creatinine 0.6 mg/dL (0.7-1.2) L 03/12/16 04:50 Estimated GFR > 60 ml/min 03/12/16 04:50 BUN/Creatinine Ratio 10.00 % 03/12/16 04:50 Glucose 134 mg/dL (65-100) H 03/12/16 04:50 Calcium 9.2 mg/dL (8.4-10.2) 03/12/16 04:50 Phosphorus 2.8 mg/dL (2.5-4.5) 03/11/16 05:00 Magnesium 1.9 mg/dL (1.7-2.3) 03/11/16 05:00 Total Bilirubin 0.5 mg/dL (0.1-1.2) 03/09/16 Unknown AST 15 units/L (5-40) 03/09/16 Unknown ALT 16 units/L (7-56) 03/09/16 Unknown Alkaline Phosphatase 108 units/L (35-129) 03/09/16 Unknown Total Creatine Kinase 28 units/L (30-135) L 03/09/16 Unknown CK-MB (CK-2) < 1.0 ng/mL (0.0-4.0) 03/09/16 Unknown CK-MB (CK-2) Rel Index 3.5 (0-4) 03/09/16 Unknown Troponin T < 0.010 ng/mL (0.00-0.029) 03/09/16 Unknown Total Protein 7.1 g/dL (6.3-8.2) 03/09/16 Unknown Albumin 3.9 g/dL (3.9-5) 03/09/16 Unknown Albumin/Globulin Ratio 1.2 % 03/09/16 Unknown TSH 0.240 mlU/mL (0.270-4.200) L 03/09/16 Unknown Free T4 1.27 ng/dL (0.76-1.46) 03/09/16 16:40 Free T3 Index 2.2 pg/mL (2.3-4.2) L 03/09/16 16:40
[2016-03-12] MEDS ORDERED: NACL 0.9% 500 ML 500 ML IV ONE (11:32)
--- NOTE | 2016-03-12 12:35 | Progress Note ---
Assessment and Plan 40 y/o female with hypotension, CKD, hypercoaguable state and what I am assuming is newly diagnosed pulmonary hypertension admitted with hypotension. 1. Continue Hydrocortisone at current dosing, will start to wean tomorrow. Will need florinef as an outpatient 2. Spoke with cards, they will review EKG as well, appears to be sinus concepción. Per patient she was told that she may need a pacer? She cannot remember who. [facility] working on obtaining records from OSH. Still needs work up for pulmonary hypertension. 3. Off dopamine, continue to monitor 4. Patient could be stable for transfer later in evening if needed. CCt 31 minutes Subjective Date of service: 03/12/16 Principal diagnosis: postural hypotension Interval history: Feels about the same. Dopamine left on overnight despite normal BP's. Stopped this am. Then HR dropped into the 40's. Asymptomatic. Normal BP off pressors. Per patient has had this happen before. Asked nursing to check orthostatics off pressors for me as well. Objective - Constitutional Vitals: Vital Signs - 12hr 03/12/16 03/12/16 03/12/16 00:45 01:00 01:15 Temperature Pulse Rate 61 62 63 Pulse Rate [ Right From Monitor] Respiratory 20 21 21 Rate Blood Pressure 149/85 147/83 147/83 O2 Sat by Pulse 96 95 95 Oximetry 03/12/16 03/12/16 03/12/16 01:30 01:45 02:00 Temperature Pulse Rate 70 85 64 Pulse Rate [ Right From Monitor] Respiratory 21 14 19 Rate Blood Pressure 138/85 138/85 139/82 O2 Sat by Pulse 95 94 97 Oximetry 03/12/16 03/12/16 03/12/16 02:15 02:30 02:45 Temperature Pulse Rate 63 63 65 Pulse Rate [ Right From Monitor] Respiratory 22 18 12 Rate Blood Pressure 139/82 143/84 143/84 O2 Sat by Pulse 98 97 97 Oximetry 03/12/16 03/12/16 03/12/16 03:00 03:15 03:30 Temperature Pulse Rate 64 67 78 Pulse Rate [ Right From Monitor] Respiratory 20 21 13 Rate Blood Pressure 157/86 157/86 144/76 O2 Sat by Pulse 97 97 95 Oximetry 03/12/16 03/12/16 03/12/16 03:39 03:45 04:00 Temperature 97.0 F L Pulse Rate 66 63 Pulse Rate [ Right From Monitor] Respiratory 16 21 Rate Blood Pressure 144/76 O2 Sat by Pulse 97 Oximetry 03/12/16 03/12/16 03/12/16 04:03 04:15 04:30 Temperature Pulse Rate 68 68 68 Pulse Rate [ Right From Monitor] Respiratory 23 22 22 Rate Blood Pressure 133/78 133/78 135/83 O2 Sat by Pulse 96 96 97 Oximetry 03/12/16 03/12/16 03/12/16 04:45 05:00 05:15 Temperature Pulse Rate 72 70 72 Pulse Rate [ Right From Monitor] Respiratory 18 22 24 Rate Blood Pressure 135/83 132/81 132/81 O2 Sat by Pulse 97 96 96 Oximetry 03/12/16 03/12/16 03/12/16 05:30 05:45 06:00 Temperature Pulse Rate 69 70 78 Pulse Rate [ Right From Monitor] Respiratory 23 24 16 Rate Blood Pressure 132/80 132/80 140/83 O2 Sat by Pulse 97 97 97 Oximetry 03/12/16 03/12/16 03/12/16 06:15 06:30 06:45 Temperature Pulse Rate 73 66 66 Pulse Rate [ Right From Monitor] Respiratory 20 23 24 Rate Blood Pressure 140/83 149/86 149/86 O2 Sat by Pulse 98 97 97 Oximetry 03/12/16 03/12/16 03/12/16 07:01 07:15 07:30 Temperature Pulse Rate 63 60 61 Pulse Rate [ Right From Monitor] Respiratory 24 21 20 Rate Blood Pressure 164/86 164/86 159/88 O2 Sat by Pulse 96 97 96 Oximetry 03/12/16 03/12/16 03/12/16 07:36 07:45 08:00 Temperature 98.2 F Pulse Rate 66 Pulse Rate [ 64 Right From Monitor] Respiratory 24 19 Rate Blood Pressure 159/88 O2 Sat by Pulse 96 Oximetry 03/12/16 03/12/16 03/12/16 08:01 08:15 08:23 Temperature Pulse Rate 63 81 80 Pulse Rate [ Right From Monitor] Respiratory 17 17 17 Rate Blood Pressure 170/86 170/86 170/86 O2 Sat by Pulse 97 99 98 Oximetry 03/12/16 03/12/16 03/12/16 08:30 08:45 09:00 Temperature Pulse Rate 83 67 77 Pulse Rate [ Right From Monitor] Respiratory 17 17 14 Rate Blood Pressure 150/96 150/96 140/93 O2 Sat by Pulse 98 98 97 Oximetry 03/12/16 03/12/16 03/12/16 09:15 09:31 09:45 Temperature Pulse Rate 72 92 H 59 L Pulse Rate [ Right From Monitor] Respiratory 11 L 16 21 Rate Blood Pressure 140/93 95/58 95/58 O2 Sat by Pulse 98 Oximetry 03/12/16 03/12/16 03/12/16 10:01 10:09 10:15 Temperature Pulse Rate 85 47 L 50 L Pulse Rate [ Right From Monitor] Respiratory 24 18 15 Rate Blood Pressure 95/58 100/25 101/63 O2 Sat by Pulse 98 99 Oximetry 03/12/16 03/12/16 03/12/16 10:30 10:45 11:01 Temperature Pulse Rate 61 50 L 42 L Pulse Rate [ Right From Monitor] Respiratory 12 17 16 Rate Blood Pressure 102/70 102/70 133/90 O2 Sat by Pulse 95 100 99 Oximetry 03/12/16 12:00 Temperature 97.5 F L Pulse Rate Pulse Rate [ Right From Monitor] Respiratory Rate Blood Pressure O2 Sat by Pulse Oximetry General appearance: Present: no acute distress - EENT Eyes: PERRL, EOM intact ENT: hearing intact, clear oral mucosa, dentition normal - Neck Neck: supple, normal ROM - Respiratory Respiratory effort: normal Respiratory: bilateral: CTA - Breasts Breasts: deferred - Cardiovascular Rhythm: regular (sinus concepción) Extremities: no ischemia, pulses intact - Gastrointestinal General gastrointestinal: Present: soft, non-tender, non-distended Rectal Exam: deferred - Genitourinary Female genitourinary: deferred - Neurologic Neurologic: CNII-XII intact - Labs CBC & Chem 7: 03/12/16 04:50 03/12/16 04:50 Labs: Abnormal lab results 03/12/16 03/12/16 Range/Units 04:50 04:50 RDW 12.9 L (13.2-15.2) % BUN 6 L (7-17) mg/dL Creatinine 0.6 L (0.7-1.2) mg/dL Glucose 134 H (65-100) mg/dL
[2016-03-12] MEDS: ZOFRAN IV PRN (21:28)
[2016-03-13] MEDS: ZOFRAN IV PRN ×2 (04:56→17:57)
[2016-03-13] MEDS: MORPHINE IV PRN ×2 (04:56→21:55)
[2016-03-13] MEDS: NACL 0.9% 1000 ML 1,000 ML IV SCH ×2 (05:56→18:35)
--- NOTE | 2016-03-13 09:23 | Progress Note ---
Assessment and Plan Assessment and plan: Hypotension. BP was low and she was given multiple bolus iv fluids, and started on Dopamine.and transferred to intensive care unit. Currently blood pressure is normal to high, off Dopamine. Dopamine discontinued yesterday. Continue Hydrocortisone. She has been admitted multiple times recently for similar complaint. Serum cortisol level ordered, results pending. Chest pain, atypical. Aspirin daily.Cardiology following. Sinus bradycardia. Heart rate in 40s sometimes in 30s. We'll keep in intensive care unit. Cardiology following Acute kidney injury. Now resolved. Creatinine 0.6 down from 2.2 on admission 3 days ago History of pulmonary embolism and DVT about 6 months ago. V/Q scan was negative this admission. s/p IVC placement 03/11/16 DVT prophylaxis with Lovenox. Full code status. History Interval history: less chest pain, dizziness, Hospitalist Physical - Physical exam Narrative exam: Gen appearance : Not in acute distress, obese, HEENT: Normocephalic atraumatic, Neck: supple, no JVD. Lungs: clear to auscultation bilaterally, no crackles no wheezes Heart: S1 and S2 regular, no murmurs no gallop Abdomen: soft, non-tender, non-distended, normal bowel sounds Extremities: No edema, no clubbing or cyanosis Neuro : Awake alert oriented 3, no focal signs,moves all ext - Constitutional Vitals: Temp Pulse Resp BP Pulse Ox 98.2 F 40 L 21 170/88 97 03/13/16 04:00 03/13/16 06:30 03/13/16 06:30 03/13/16 06:30 03/13/16 06:30 General appearance: Present: no acute distress, well-nourished Results - Labs CBC & Chem 7: 03/12/16 04:50 03/12/16 04:50 Labs: Laboratory Last Values WBC 6.9 K/mm3 (4.5-11.0) 03/12/16 04:50 RBC 4.05 M/mm3 (3.65-5.03) 03/12/16 04:50 Hgb 11.8 gm/dl (10.1-14.3) 03/12/16 04:50 Hct 34.8 % (30.3-42.9) 03/12/16 04:50 MCV 87 fl (79-97) 03/12/16 04:50 MCH 29 pg (28-32) 03/12/16 04:50 MCHC 34 % (30-34) 03/12/16 04:50 RDW 12.9 % (13.2-15.2) L 03/12/16 04:50 Plt Count 291 K/mm3 (140-440) 03/12/16 04:50 Lymph % (Auto) 22.3 % (13.4-35.0) 03/09/16 Unknown [place] % (Auto) 5.9 % (0.0-7.3) 03/09/16 Unknown Eos % (Auto) 1.1 % (0.0-4.3) 03/09/16 Unknown Baso % (Auto) 0.3 % (0.0-1.8) 03/09/16 Unknown Lymph # 2.4 K/mm3 (1.2-5.4) 03/09/16 Unknown [place] # 0.6 K/mm3 (0.0-0.8) 03/09/16 Unknown Eos # 0.1 K/mm3 (0.0-0.4) 03/09/16 Unknown Baso # 0.0 K/mm3 (0.0-0.1) 03/09/16 Unknown Seg Neutrophils % 70.4 % (40.0-70.0) H 03/09/16 Unknown Seg Neutrophils # 7.6 K/mm3 (1.8-7.7) 03/09/16 Unknown PT 13.6 Sec. (12.2-14.9) 03/09/16 Unknown INR 1.05 (0.87-1.13) 03/09/16 Unknown APTT 36.7 Sec. (24.2-36.6) H 03/09/16 Unknown D-Dimer 516.98 ng/mlDDU (0-234) H 03/09/16 Unknown Sodium 143 mmol/L (137-145) 03/12/16 04:50 Potassium 4.1 mmol/L (3.6-5.0) 03/12/16 04:50 Chloride 103.8 mmol/L (98-107) 03/12/16 04:50 Carbon Dioxide 25 mmol/L (22-30) 03/12/16 04:50 Anion Gap 18 mmol/L 03/12/16 04:50 BUN 6 mg/dL (7-17) L 03/12/16 04:50 Creatinine 0.6 mg/dL (0.7-1.2) L 03/12/16 04:50 Estimated GFR > 60 ml/min 03/12/16 04:50 BUN/Creatinine Ratio 10.00 % 03/12/16 04:50 Glucose 134 mg/dL (65-100) H 03/12/16 04:50 Calcium 9.2 mg/dL (8.4-10.2) 03/12/16 04:50 Phosphorus 2.8 mg/dL (2.5-4.5) 03/11/16 05:00 Magnesium 1.9 mg/dL (1.7-2.3) 03/11/16 05:00 Total Bilirubin 0.5 mg/dL (0.1-1.2) 03/09/16 Unknown AST 15 units/L (5-40) 03/09/16 Unknown ALT 16 units/L (7-56) 03/09/16 Unknown Alkaline Phosphatase 108 units/L (35-129) 03/09/16 Unknown Total Creatine Kinase 28 units/L (30-135) L 03/09/16 Unknown CK-MB (CK-2) < 1.0 ng/mL (0.0-4.0) 03/09/16 Unknown CK-MB (CK-2) Rel Index 3.5 (0-4) 03/09/16 Unknown Troponin T < 0.010 ng/mL (0.00-0.029) 03/09/16 Unknown Total Protein 7.1 g/dL (6.3-8.2) 03/09/16 Unknown Albumin 3.9 g/dL (3.9-5) 03/09/16 Unknown Albumin/Globulin Ratio 1.2 % 03/09/16 Unknown TSH 0.240 mlU/mL (0.270-4.200) L 03/09/16 Unknown Free T4 1.27 ng/dL (0.76-1.46) 03/09/16 16:40 Free T3 Index 2.2 pg/mL (2.3-4.2) L 03/09/16 16:40
[2016-03-13] MEDS: PLAVIX PO SCH (10:01)
[2016-03-13] MEDS: ASPIRIN PO SCH (10:01)
[2016-03-13] MEDS: LOVENOX SUB-Q SCH (10:01)
--- NOTE | 2016-03-13 11:29 | Progress Note ---
Assessment and Plan Postural hypotension continue IVF Echo 02/2016: EF 55-60%, RVSP 37mmHg V/Q scan negative for PE high dose steroids added per Dr. Guillen Atypical chest pain Hx. of atrial fibrillation s/p ablation (done in [place], [place]) Chronic kidney disease renal indices normal today per nephrology Hx. of DVT/PE s/p IVC filter placement 03/11 per vascular ?Lupus Sinus concepción but rate improves with activity.Agree with starting florinef and to increase activity gradually. - Patient Problems (1) Chest pain Current Visit: Yes Status: Acute Qualifiers: Chest pain type: unspecified Qualified Code(s): R07.9 - Chest pain, unspecified (2) Hypotension Current Visit: Yes Status: Acute Qualifiers: Hypotension type: unspecified hypotension type Qualified Code(s): I95.9 - Hypotension, unspecified (3) Thromboembolic disorder Current Visit: Yes Status: Acute Subjective Date of service: 03/13/16 Principal diagnosis: postural hypotension Interval history: Overall feels better No significant chest pain Objective Vital Signs Temp Pulse Pulse Resp BP Pulse Ox 03/13/16 10:37 43 L 20 142/80 03/13/16 10:31 43 L 23 142/80 03/13/16 10:15 45 L 16 128/46 03/13/16 10:01 47 L 15 145/82 03/13/16 09:45 42 L 21 145/82 96 03/13/16 09:35 46 L 03/13/16 09:30 45 L 24 145/82 95 03/13/16 09:15 48 L 26 H 159/78 94 03/13/16 09:01 47 L 24 159/78 96 03/13/16 08:45 50 L 17 176/86 03/13/16 08:31 47 L 12 176/86 99 03/13/16 08:15 46 L 13 172/87 97 03/13/16 08:01 43 L 22 172/87 97 03/13/16 08:00 98.1 F 03/13/16 07:45 44 L 44 L 22 145/79 97 03/13/16 07:30 43 L 20 145/79 97 03/13/16 07:15 43 L 21 159/84 97 03/13/16 07:00 42 L 17 159/84 99 03/13/16 06:45 45 L 10 L 170/88 98 01/21/17 06:36 40 L 16 170/88 99 03/13/16 06:30 40 L 21 170/88 97 03/13/16 06:15 45 L 19 156/82 98 03/13/16 06:00 39 L 20 156/82 98 03/13/16 05:45 40 L 17 162/82 99 03/13/16 05:31 40 L 16 134/83 98 03/13/16 05:15 50 L 18 140/75 98 03/13/16 05:01 49 L 16 140/75 99 03/13/16 04:56 12 03/13/16 04:45 50 L 19 123/60 97 03/13/16 04:31 97 H 18 123/60 97 03/13/16 04:15 67 17 123/53 98 03/13/16 04:00 98.2 F 44 L 15 123/53 99 03/13/16 03:45 49 L 23 125/71 97 03/13/16 03:30 48 L 21 125/71 97 03/13/16 03:15 48 L 23 132/70 97 03/13/16 03:00 49 L 21 132/70 98 03/13/16 02:45 49 L 22 130/74 97 03/13/16 02:30 51 L 22 130/74 97 03/13/16 02:15 49 L 22 126/68 97 03/13/16 02:00 51 L 21 126/68 98 03/13/16 01:45 48 L 21 124/69 97 03/13/16 01:30 48 L 22 124/69 97 03/13/16 01:15 48 L 22 126/68 97 03/13/16 01:00 47 L 22 126/68 97 03/13/16 00:45 45 L 23 136/75 98 03/13/16 00:30 46 L 23 136/75 98 03/13/16 00:15 46 L 23 126/69 99 03/13/16 00:00 98.9 F 49 L 24 126/69 98 03/12/16 23:45 48 L 23 144/75 98 03/12/16 23:31 43 L 20 159/75 98 03/12/16 23:15 44 L 23 144/75 98 03/12/16 23:00 44 L 22 144/75 97 03/12/16 22:45 45 L 9 L 127/79 99 03/12/16 22:30 51 L 18 138/81 99 03/12/16 22:15 62 12 125/74 99 03/12/16 22:00 74 19 127/79 100 03/12/16 21:45 85 17 125/74 98 03/12/16 21:30 90 17 125/74 99 03/12/16 21:28 12 03/12/16 21:15 81 18 129/70 99 03/12/16 21:00 74 15 129/70 100 03/12/16 20:45 72 20 125/78 98 03/12/16 20:30 82 19 125/78 98 03/12/16 20:15 120 H 21 117/70 99 03/12/16 20:00 98.5 F 59 L 13 117/70 99 03/12/16 19:45 73 21 118/73 99 03/12/16 19:31 67 21 126/63 99 03/12/16 19:15 66 22 126/63 99 03/12/16 19:00 60 22 126/63 98 03/12/16 18:45 55 L 19 122/71 97 03/12/16 18:30 53 L 12 122/71 99 03/12/16 18:17 55 L 19 124/61 98 03/12/16 18:15 51 L 20 124/61 98 03/12/16 18:01 51 L 20 124/61 99 03/12/16 17:45 52 L 21 98/53 98 03/12/16 17:31 77 28 H 98/53 100 03/12/16 17:15 52 L 18 104/59 99 03/12/16 17:00 57 L 22 104/59 99 03/12/16 16:45 48 L 21 112/62 99 03/12/16 16:30 49 L 20 112/62 98 03/12/16 16:15 49 L 16 103/59 97 03/12/16 16:00 48 L 51 L 18 103/59 98 03/12/16 15:45 49 L 17 93/53 97 03/12/16 15:43 98.0 F 03/12/16 15:30 46 L 13 93/53 99 03/12/16 15:25 52 L 17 95/54 99 03/12/16 15:15 48 L 16 95/54 97 03/12/16 15:00 55 L 18 95/54 96 03/12/16 14:45 62 17 82/62 97 03/12/16 14:30 72 19 82/62 99 03/12/16 14:15 74 13 95/53 96 03/12/16 14:00 59 L 14 95/53 100 03/12/16 13:45 82 10 L 97/51 100 03/12/16 13:30 85 20 88/41 98 03/12/16 13:15 74 19 105/55 98 03/12/16 13:01 69 14 105/55 99 03/12/16 13:00 61 19 105/55 99 03/12/16 12:47 58 L 13 107/60 99 03/12/16 12:45 57 L 17 107/60 99 03/12/16 12:31 53 L 14 107/60 98 03/12/16 12:30 53 L 14 107/60 99 03/12/16 12:15 54 L 12 111/68 98 03/12/16 12:00 97.5 F L 47 L 59 L 17 111/68 100 03/12/16 11:45 51 L 23 121/72 98 03/12/16 11:31 45 L 22 121/72 97 - Physical Examination General: No Apparent Distress HEENT: Positive: PERRL, Normocephaly, Mucus Membranes Moist Neck: Positive: neck supple Cardiac: Positive: Regular Rhythm, Bradycardia Lungs: Positive: clear to auscultation Neuro: Positive: Grossly Intact Abdomen: Positive: Soft, Active Bowel Sounds. Negative: Tender Skin: Positive: Clear. Negative: Rash Extremities: Present: normal. Absent: edema - Imaging and Cardiology EKG: image reviewed Echo: report reviewed (02/2016: EF 55-60%, RVSP 37mmHg) - EKG Sinus rhythms and dysrhythmias: sinus rhythm
--- NOTE | 2016-03-13 16:28 | Progress Note ---
Assessment and Plan 40 y/o female with hypotension, CKD, hypercoaguable state and what I am assuming is newly diagnosed pulmonary hypertension admitted with hypotension. 1. Will change to 50q8 2. Agree with continued volume, suggest checking orthostatics again 3. Off dopamine, continue to monitor 4. Stable for transfer to the floor. 5. Needs right heart cath at some point Subjective Date of service: 03/13/16 Principal diagnosis: postural hypotension Interval history: No acute events. Remains off pressors. BP stable Objective - Constitutional Vitals: Vital Signs - 12hr 03/13/16 03/13/16 03/13/16 04:31 04:45 04:56 Temperature Pulse Rate 97 H 50 L Pulse Rate [ Right From Monitor] Respiratory 18 19 12 Rate Blood Pressure 123/60 123/60 O2 Sat by Pulse 97 97 Oximetry 03/13/16 03/13/16 03/13/16 05:01 05:15 05:31 Temperature Pulse Rate 49 L 50 L 40 L Pulse Rate [ Right From Monitor] Respiratory 16 18 16 Rate Blood Pressure 140/75 140/75 134/83 O2 Sat by Pulse 99 98 98 Oximetry 03/13/16 03/13/16 03/13/16 05:45 06:00 06:15 Temperature Pulse Rate 40 L 39 L 45 L Pulse Rate [ Right From Monitor] Respiratory 17 20 19 Rate Blood Pressure 162/82 156/82 156/82 O2 Sat by Pulse 99 98 98 Oximetry 03/13/16 03/13/16 03/13/16 06:30 06:36 06:45 Temperature Pulse Rate 40 L 40 L 45 L Pulse Rate [ Right From Monitor] Respiratory 21 16 10 L Rate Blood Pressure 170/88 170/88 170/88 O2 Sat by Pulse 97 99 98 Oximetry 03/13/16 03/13/16 03/13/16 07:00 07:15 07:30 Temperature Pulse Rate 42 L 43 L 43 L Pulse Rate [ Right From Monitor] Respiratory 17 21 20 Rate Blood Pressure 159/84 159/84 145/79 O2 Sat by Pulse 99 97 97 Oximetry 03/13/16 03/13/16 03/13/16 07:45 08:00 08:01 Temperature 98.1 F Pulse Rate 44 L 43 L Pulse Rate [ 44 L Right From Monitor] Respiratory 22 22 Rate Blood Pressure 145/79 172/87 O2 Sat by Pulse 97 97 Oximetry 03/13/16 03/13/16 03/13/16 08:15 08:31 08:45 Temperature Pulse Rate 46 L 47 L 50 L Pulse Rate [ Right From Monitor] Respiratory 13 12 17 Rate Blood Pressure 172/87 176/86 176/86 O2 Sat by Pulse 97 99 Oximetry 03/13/16 03/13/16 03/13/16 09:01 09:15 09:30 Temperature Pulse Rate 47 L 48 L 45 L Pulse Rate [ Right From Monitor] Respiratory 24 26 H 24 Rate Blood Pressure 159/78 159/78 145/82 O2 Sat by Pulse 96 94 95 Oximetry 03/13/16 03/13/16 03/13/16 09:35 09:45 10:01 Temperature Pulse Rate 46 L 42 L 47 L Pulse Rate [ Right From Monitor] Respiratory 21 15 Rate Blood Pressure 145/82 145/82 O2 Sat by Pulse 96 Oximetry 03/13/16 03/13/16 03/13/16 10:15 10:31 10:37 Temperature Pulse Rate 45 L 43 L 43 L Pulse Rate [ Right From Monitor] Respiratory 16 23 20 Rate Blood Pressure 128/46 142/80 142/80 O2 Sat by Pulse Oximetry 03/13/16 03/13/16 03/13/16 10:39 10:45 11:00 Temperature Pulse Rate 44 L 44 L 41 L Pulse Rate [ Right From Monitor] Respiratory 21 21 20 Rate Blood Pressure 142/80 142/80 141/69 O2 Sat by Pulse 91 92 91 Oximetry 03/13/16 03/13/16 03/13/16 11:15 11:31 11:45 Temperature Pulse Rate 39 L 45 L 42 L Pulse Rate [ Right From Monitor] Respiratory 20 22 22 Rate Blood Pressure 141/69 141/69 117/44 O2 Sat by Pulse 89 99 Oximetry 03/13/16 03/13/16 03/13/16 11:59 12:00 12:01 Temperature 97.8 F Pulse Rate 54 L Pulse Rate [ Right From Monitor] Respiratory 21 Rate Blood Pressure 117/44 O2 Sat by Pulse 99 99 Oximetry 03/13/16 03/13/16 03/13/16 12:15 12:31 12:45 Temperature Pulse Rate 51 L 49 L 50 L Pulse Rate [ Right From Monitor] Respiratory 21 20 20 Rate Blood Pressure 117/44 116/61 116/61 O2 Sat by Pulse 98 99 99 Oximetry 03/13/16 03/13/16 03/13/16 13:00 13:15 13:31 Temperature Pulse Rate 56 L 49 L 43 L Pulse Rate [ Right From Monitor] Respiratory 20 22 22 Rate Blood Pressure 108/65 108/65 126/69 O2 Sat by Pulse 98 98 98 Oximetry - Labs CBC & Chem 7: 03/12/16 04:50 03/12/16 04:50
[2016-03-13] MEDS: TYLENOL PO PRN (16:51)
[2016-03-13] MEDS: ROXICODONE PO PRN (18:34)
[2016-03-14] MEDS: NACL 0.9% 1000 ML 1,000 ML IV SCH ×2 (08:32→21:27)
--- NOTE | 2016-03-14 10:19 | Progress Note ---
Assessment and Plan Assessment and plan: Hypotension. BP was low and she was given multiple bolus iv fluids, and started on Dopamine.and transferred to intensive care unit. Currently blood pressure is normal to high, off Dopamine. Dopamine discontinued.. Continue Hydrocortisone. She has been admitted multiple times recently for similar complaint. Serum cortisol level ordered, results pending. Chest pain, atypical. Aspirin daily.Cardiology following. Sinus bradycardia. Heart rate in 40s sometimes in 30s. She is however asymptomatic. Discussed with cardiology. Stable to transfer to telemetry. Acute kidney injury. Now resolved. Creatinine 0.6 down from 2.2 on admission. History of pulmonary embolism and DVT about 6 months ago. V/Q scan was negative this admission. s/p IVC placement 03/11/16 DVT prophylaxis with Lovenox. Full code status. History Interval history: less chest pain, dizziness on and off, worried about bradycardia Hospitalist Physical - Physical exam Narrative exam: Gen appearance : Not in acute distress, obese, HEENT: Normocephalic atraumatic, Neck: supple, no JVD. Lungs: clear to auscultation bilaterally, no crackles no wheezes Heart: S1 and S2 regular, bradycardia, no murmurs no gallop Abdomen: soft, non-tender, non-distended, normal bowel sounds Extremities: No edema, no clubbing or cyanosis Neuro : Awake alert oriented 3, no focal signs,moves all ext - Constitutional Vitals: Temp Pulse Resp BP Pulse Ox 97.9 F 37 L 22 141/90 97 03/14/16 08:00 03/14/16 08:16 03/14/16 08:16 03/14/16 08:16 03/14/16 08:16 General appearance: Present: no acute distress, well-nourished Results - Labs CBC & Chem 7: 03/12/16 04:50 03/12/16 04:50 Labs: Laboratory Last Values WBC 6.9 K/mm3 (4.5-11.0) 03/12/16 04:50 RBC 4.05 M/mm3 (3.65-5.03) 03/12/16 04:50 Hgb 11.8 gm/dl (10.1-14.3) 03/12/16 04:50 Hct 34.8 % (30.3-42.9) 03/12/16 04:50 MCV 87 fl (79-97) 03/12/16 04:50 MCH 29 pg (28-32) 03/12/16 04:50 MCHC 34 % (30-34) 03/12/16 04:50 RDW 12.9 % (13.2-15.2) L 03/12/16 04:50 Plt Count 291 K/mm3 (140-440) 03/12/16 04:50 Lymph % (Auto) 22.3 % (13.4-35.0) 03/09/16 Unknown [place] % (Auto) 5.9 % (0.0-7.3) 03/09/16 Unknown Eos % (Auto) 1.1 % (0.0-4.3) 03/09/16 Unknown Baso % (Auto) 0.3 % (0.0-1.8) 03/09/16 Unknown Lymph # 2.4 K/mm3 (1.2-5.4) 03/09/16 Unknown [place] # 0.6 K/mm3 (0.0-0.8) 03/09/16 Unknown Eos # 0.1 K/mm3 (0.0-0.4) 03/09/16 Unknown Baso # 0.0 K/mm3 (0.0-0.1) 03/09/16 Unknown Seg Neutrophils % 70.4 % (40.0-70.0) H 03/09/16 Unknown Seg Neutrophils # 7.6 K/mm3 (1.8-7.7) 03/09/16 Unknown PT 13.6 Sec. (12.2-14.9) 03/09/16 Unknown INR 1.05 (0.87-1.13) 03/09/16 Unknown APTT 36.7 Sec. (24.2-36.6) H 03/09/16 Unknown D-Dimer 516.98 ng/mlDDU (0-234) H 03/09/16 Unknown Sodium 143 mmol/L (137-145) 03/12/16 04:50 Potassium 4.1 mmol/L (3.6-5.0) 03/12/16 04:50 Chloride 103.8 mmol/L (98-107) 03/12/16 04:50 Carbon Dioxide 25 mmol/L (22-30) 03/12/16 04:50 Anion Gap 18 mmol/L 03/12/16 04:50 BUN 6 mg/dL (7-17) L 03/12/16 04:50 Creatinine 0.6 mg/dL (0.7-1.2) L 03/12/16 04:50 Estimated GFR > 60 ml/min 03/12/16 04:50 BUN/Creatinine Ratio 10.00 % 03/12/16 04:50 Glucose 134 mg/dL (65-100) H 03/12/16 04:50 Calcium 9.2 mg/dL (8.4-10.2) 03/12/16 04:50 Phosphorus 2.8 mg/dL (2.5-4.5) 03/11/16 05:00 Magnesium 1.9 mg/dL (1.7-2.3) 03/11/16 05:00 Total Bilirubin 0.5 mg/dL (0.1-1.2) 03/09/16 Unknown AST 15 units/L (5-40) 03/09/16 Unknown ALT 16 units/L (7-56) 03/09/16 Unknown Alkaline Phosphatase 108 units/L (35-129) 03/09/16 Unknown Total Creatine Kinase 28 units/L (30-135) L 03/09/16 Unknown CK-MB (CK-2) < 1.0 ng/mL (0.0-4.0) 03/09/16 Unknown CK-MB (CK-2) Rel Index 3.5 (0-4) 03/09/16 Unknown Troponin T < 0.010 ng/mL (0.00-0.029) 03/09/16 Unknown Total Protein 7.1 g/dL (6.3-8.2) 03/09/16 Unknown Albumin 3.9 g/dL (3.9-5) 03/09/16 Unknown Albumin/Globulin Ratio 1.2 % 03/09/16 Unknown TSH 0.240 mlU/mL (0.270-4.200) L 03/09/16 Unknown Free T4 1.27 ng/dL (0.76-1.46) 03/09/16 16:40 Free T3 Index 2.2 pg/mL (2.3-4.2) L 03/09/16 16:40 Total Cortisol 1.9 mcg/dL () 03/11/16 06:50
[2016-03-14] MEDS: ASPIRIN PO SCH (10:40)
[2016-03-14] MEDS: PLAVIX PO SCH (10:40)
[2016-03-14] MEDS: LOVENOX SUB-Q SCH (10:40)
--- NOTE | 2016-03-14 11:00 | Progress Note ---
Assessment and Plan 40 y/o female with hypotension, CKD, hypercoaguable state and what I am assuming is newly diagnosed pulmonary hypertension admitted with hypotension. 1. Will change to 50q8 2. Agree with continued volume, suggest checking orthostatics again 3. Off dopamine, continue to monitor 4. Feel stable for floor transfer but hospitalist wants to wait on cardiology 5. Needs right heart cath at some point for better evaluation of pulmonary hypertension. Subjective Date of service: 03/14/16 Principal diagnosis: postural hypotension Interval history: Remains sinus concepción. Cards following. BP stable. I dropped steroids to 50q8 today. Objective - Constitutional Vitals: Vital Signs - 12hr 03/13/16 03/13/16 03/13/16 23:00 23:16 23:30 Temperature Pulse Rate 48 L 44 L 47 L Pulse Rate [ Left Radial] Pulse Rate [ Right From Monitor] Pulse Rate [ Right Radial] Respiratory 16 14 22 Rate Respiratory Rate [CHEST PAIN] Blood Pressure 114/61 144/77 128/77 O2 Sat by Pulse 99 99 99 Oximetry 03/13/16 03/14/16 03/14/16 23:46 00:00 00:16 Temperature 98.1 F Pulse Rate 52 L 48 L 44 L Pulse Rate [ 45 L Left Radial] Pulse Rate [ 45 L Right From Monitor] Pulse Rate [ 45 L Right Radial] Respiratory 12 18 14 Rate Respiratory Rate [CHEST PAIN] Blood Pressure 128/77 140/87 140/87 O2 Sat by Pulse 98 98 100 Oximetry 03/14/16 03/14/16 03/14/16 00:30 00:46 01:00 Temperature Pulse Rate 42 L 38 L 38 L Pulse Rate [ Left Radial] Pulse Rate [ Right From Monitor] Pulse Rate [ Right Radial] Respiratory 17 19 19 Rate Respiratory Rate [CHEST PAIN] Blood Pressure 149/83 149/83 149/83 O2 Sat by Pulse 99 99 99 Oximetry 03/14/16 03/14/16 03/14/16 01:16 01:30 01:46 Temperature Pulse Rate 38 L 43 L 47 L Pulse Rate [ Left Radial] Pulse Rate [ Right From Monitor] Pulse Rate [ Right Radial] Respiratory 19 21 24 Rate Respiratory Rate [CHEST PAIN] Blood Pressure 182/140 149/85 149/85 O2 Sat by Pulse 99 99 99 Oximetry 03/14/16 03/14/16 03/14/16 02:00 02:16 02:30 Temperature Pulse Rate 51 L 50 L 48 L Pulse Rate [ Left Radial] Pulse Rate [ Right From Monitor] Pulse Rate [ Right Radial] Respiratory 12 23 20 Rate Respiratory Rate [CHEST PAIN] Blood Pressure 149/85 149/85 128/70 O2 Sat by Pulse 99 98 98 Oximetry 03/14/16 03/14/16 03/14/16 02:46 03:00 03:16 Temperature Pulse Rate 43 L 45 L 43 L Pulse Rate [ Left Radial] Pulse Rate [ Right From Monitor] Pulse Rate [ Right Radial] Respiratory 22 20 22 Rate Respiratory Rate [CHEST PAIN] Blood Pressure 128/70 142/75 142/75 O2 Sat by Pulse 98 97 98 Oximetry 03/14/16 03/14/16 03/14/16 03:30 03:46 04:00 Temperature 98.6 F Pulse Rate 44 L 45 L 44 L Pulse Rate [ Left Radial] Pulse Rate [ Right From Monitor] Pulse Rate [ Right Radial] Respiratory 22 22 22 Rate Respiratory 16 Rate [CHEST PAIN] Blood Pressure 134/75 134/75 130/79 O2 Sat by Pulse 98 98 97 Oximetry 03/14/16 03/14/16 03/14/16 04:16 04:30 04:46 Temperature Pulse Rate 42 L 42 L 43 L Pulse Rate [ Left Radial] Pulse Rate [ Right From Monitor] Pulse Rate [ Right Radial] Respiratory 21 17 20 Rate Respiratory Rate [CHEST PAIN] Blood Pressure 130/79 129/81 130/79 O2 Sat by Pulse 98 99 99 Oximetry 03/14/16 03/14/16 03/14/16 05:00 05:16 05:30 Temperature Pulse Rate 46 L 46 L 44 L Pulse Rate [ Left Radial] Pulse Rate [ Right From Monitor] Pulse Rate [ Right Radial] Respiratory 21 22 22 Rate Respiratory Rate [CHEST PAIN] Blood Pressure 133/77 133/77 128/78 O2 Sat by Pulse 98 98 98 Oximetry 03/14/16 03/14/16 03/14/16 05:46 06:00 06:16 Temperature Pulse Rate 44 L 48 L 49 L Pulse Rate [ Left Radial] Pulse Rate [ Right From Monitor] Pulse Rate [ Right Radial] Respiratory 20 20 15 Rate Respiratory Rate [CHEST PAIN] Blood Pressure 128/78 133/75 133/75 O2 Sat by Pulse 98 99 100 Oximetry 03/14/16 03/14/16 03/14/16 06:20 06:28 06:30 Temperature Pulse Rate 62 74 68 Pulse Rate [ Left Radial] Pulse Rate [ Right From Monitor] Pulse Rate [ Right Radial] Respiratory 16 14 12 Rate Respiratory Rate [CHEST PAIN] Blood Pressure 133/75 133/75 133/75 O2 Sat by Pulse 95 99 99 Oximetry 03/14/16 03/14/16 03/14/16 06:46 07:00 07:16 Temperature Pulse Rate 71 67 40 L Pulse Rate [ Left Radial] Pulse Rate [ Right From Monitor] Pulse Rate [ Right Radial] Respiratory 15 22 20 Rate Respiratory Rate [CHEST PAIN] Blood Pressure 133/75 133/75 140/80 O2 Sat by Pulse 99 98 96 Oximetry 03/14/16 03/14/16 03/14/16 07:30 07:46 08:00 Temperature 97.9 F Pulse Rate 36 L 35 L 35 L Pulse Rate [ Left Radial] Pulse Rate [ Right From Monitor] Pulse Rate [ Right Radial] Respiratory 16 18 20 Rate Respiratory Rate [CHEST PAIN] Blood Pressure 140/80 147/90 147/90 O2 Sat by Pulse 97 97 98 Oximetry 03/14/16 03/14/16 08:10 08:16 Temperature Pulse Rate 35 L 37 L Pulse Rate [ Left Radial] Pulse Rate [ 35 L Right From Monitor] Pulse Rate [ Right Radial] Respiratory 20 22 Rate Respiratory Rate [CHEST PAIN] Blood Pressure 141/90 O2 Sat by Pulse 97 97 Oximetry - Labs CBC & Chem 7: 03/12/16 04:50 03/12/16 04:50
--- NOTE | 2016-03-14 13:27 | Progress Note ---
Assessment and Plan Sinus bradycardia cont monito monitoring-will ck thyroid profile.Discussed with Dr Guillen and Dr Bailey Postural hypotension continue IVF Echo 02/2016: EF 55-60%, RVSP 37mmHg V/Q scan negative for PE high dose steroids added per Dr. Guillen Atypical chest pain Hx. of atrial fibrillation s/p ablation (done in [place], [place]) Chronic kidney disease renal indices normal today per nephrology Hx. of DVT/PE s/p IVC filter placement 03/11 per vascular ?Lupus Sinus concepción but rate improves with activity.Agree with starting florinef and to increase activity gradually. - Patient Problems (1) Chest pain Current Visit: Yes Status: Acute Qualifiers: Chest pain type: unspecified Qualified Code(s): R07.9 - Chest pain, unspecified (2) Hypotension Current Visit: Yes Status: Acute Qualifiers: Hypotension type: unspecified hypotension type Qualified Code(s): I95.9 - Hypotension, unspecified (3) Thromboembolic disorder Current Visit: Yes Status: Acute Subjective Date of service: 03/14/16 Principal diagnosis: postural hypotension Interval history: Overall feels better No significant chest pain Objective Vital Signs Temp Pulse Pulse Pulse Pulse Resp Resp 03/14/16 08:16 37 L 22 03/14/16 08:10 35 L 35 L 20 03/14/16 08:00 97.9 F 35 L 20 03/14/16 07:46 35 L 18 03/14/16 07:30 36 L 16 03/14/16 07:16 40 L 20 03/14/16 07:00 67 22 03/14/16 06:46 71 15 03/14/16 06:30 68 12 03/14/16 06:28 74 14 03/14/16 06:20 62 16 03/14/16 06:16 49 L 15 03/14/16 06:00 48 L 20 03/14/16 05:46 44 L 20 03/14/16 05:30 44 L 22 03/14/16 05:16 46 L 22 03/14/16 05:00 46 L 21 03/14/16 04:46 43 L 20 03/14/16 04:30 42 L 17 03/14/16 04:16 42 L 21 03/14/16 04:00 98.6 F 44 L 22 16 03/14/16 03:46 45 L 22 03/14/16 03:30 44 L 22 03/14/16 03:16 43 L 22 03/14/16 03:00 45 L 20 03/14/16 02:46 43 L 22 03/14/16 02:30 48 L 20 03/14/16 02:16 50 L 23 03/14/16 02:00 51 L 12 03/14/16 01:46 47 L 24 03/14/16 01:30 43 L 21 03/14/16 01:16 38 L 19 03/14/16 01:00 38 L 19 03/14/16 00:46 38 L 19 03/14/16 00:30 42 L 17 03/14/16 00:16 44 L 14 03/14/16 00:00 98.1 F 48 L 45 L 45 L 45 L 18 03/13/16 23:46 52 L 12 03/13/16 23:30 47 L 22 03/13/16 23:16 44 L 14 03/13/16 23:00 48 L 16 03/13/16 22:46 67 18 03/13/16 22:30 56 L 10 L 03/13/16 22:16 66 15 03/13/16 22:00 65 13 03/13/16 21:55 13 03/13/16 21:46 72 16 03/13/16 21:30 62 26 H 03/13/16 21:16 65 16 03/13/16 21:00 54 L 25 H 03/13/16 20:46 53 L 25 H 03/13/16 20:30 46 L 18 03/13/16 20:16 47 L 12 03/13/16 20:04 03/13/16 20:00 98.8 F 47 L 34 L 34 L 34 L 18 03/13/16 19:46 45 L 24 03/13/16 19:34 15 03/13/16 19:30 45 L 14 03/13/16 19:16 43 L 15 03/13/16 19:00 45 L 18 03/13/16 18:46 51 L 17 03/13/16 18:38 48 L 17 03/13/16 18:34 16 03/13/16 18:30 62 16 03/13/16 18:16 67 11 L 03/13/16 18:00 98.5 F 91 H 13 03/13/16 17:46 92 H 14 03/13/16 17:30 70 12 03/13/16 17:16 90 20 03/13/16 17:12 105 H 22 03/13/16 17:00 65 17 03/13/16 16:51 16 03/13/16 16:46 87 19 03/13/16 16:36 88 15 03/13/16 16:30 89 15 03/13/16 16:16 51 L 26 H 03/13/16 16:00 50 L 54 L 25 H 03/13/16 15:58 49 L 25 H 03/13/16 15:45 51 L 26 H 03/13/16 15:30 59 L 22 03/13/16 15:15 62 26 H 03/13/16 15:00 53 L 23 03/13/16 14:45 56 L 23 03/13/16 14:30 57 L 24 03/13/16 14:15 58 L 21 03/13/16 14:01 57 L 14 03/13/16 14:00 56 L 03/13/16 13:45 46 L 21 03/13/16 13:41 46 L 24 03/13/16 13:31 43 L 22 BP Pulse Ox 03/14/16 08:16 141/90 97 03/14/16 08:10 97 03/14/16 08:00 147/90 98 03/14/16 07:46 147/90 97 03/14/16 07:30 140/80 97 03/14/16 07:16 140/80 96 03/14/16 07:00 133/75 98 03/14/16 06:46 133/75 99 03/14/16 06:30 133/75 99 03/14/16 06:28 133/75 99 03/14/16 06:20 133/75 95 03/14/16 06:16 133/75 100 03/14/16 06:00 133/75 99 03/14/16 05:46 128/78 98 03/14/16 05:30 128/78 98 03/14/16 05:16 133/77 98 03/14/16 05:00 133/77 98 03/14/16 04:46 130/79 99 03/14/16 04:30 129/81 99 03/14/16 04:16 130/79 98 03/14/16 04:00 130/79 97 03/14/16 03:46 134/75 98 03/14/16 03:30 134/75 98 03/14/16 03:16 142/75 98 03/14/16 03:00 142/75 97 03/14/16 02:46 128/70 98 03/14/16 02:30 128/70 98 03/14/16 02:16 149/85 98 03/14/16 02:00 149/85 99 03/14/16 01:46 149/85 99 03/14/16 01:30 149/85 99 03/14/16 01:16 182/140 99 03/14/16 01:00 149/83 99 03/14/16 00:46 149/83 99 03/14/16 00:30 149/83 99 03/14/16 00:16 140/87 100 03/14/16 00:00 140/87 98 03/13/16 23:46 128/77 98 03/13/16 23:30 128/77 99 03/13/16 23:16 144/77 99 03/13/16 23:00 114/61 99 03/13/16 22:46 114/61 100 03/13/16 22:30 114/66 99 03/13/16 22:16 114/66 99 03/13/16 22:00 114/66 98 03/13/16 21:55 03/13/16 21:46 113/56 99 03/13/16 21:30 113/56 98 03/13/16 21:16 116/62 98 03/13/16 21:00 139/78 98 03/13/16 20:46 139/78 98 03/13/16 20:30 139/78 98 03/13/16 20:16 138/84 99 03/13/16 20:04 99 03/13/16 20:00 138/84 98 03/13/16 19:46 146/71 99 03/13/16 19:34 03/13/16 19:30 146/71 98 03/13/16 19:16 137/95 99 03/13/16 19:00 137/95 99 03/13/16 18:46 144/84 97 03/13/16 18:38 144/84 98 03/13/16 18:34 03/13/16 18:30 144/84 98 03/13/16 18:16 139/78 99 03/13/16 18:00 139/78 100 03/13/16 17:46 135/78 100 03/13/16 17:30 135/78 99 03/13/16 17:16 137/79 99 03/13/16 17:12 137/79 97 03/13/16 17:00 117/72 99 03/13/16 16:51 03/13/16 16:46 117/72 98 03/13/16 16:36 116/60 99 03/13/16 16:30 116/60 93 03/13/16 16:16 116/60 97 03/13/16 16:00 116/60 96 03/13/16 15:58 116/60 97 03/13/16 15:45 116/60 97 03/13/16 15:30 116/60 96 03/13/16 15:15 116/65 98 03/13/16 15:00 116/65 97 03/13/16 14:45 110/65 98 03/13/16 14:30 110/65 98 03/13/16 14:15 118/72 98 03/13/16 14:01 118/72 99 03/13/16 14:00 03/13/16 13:45 126/69 98 03/13/16 13:41 126/69 98 03/13/16 13:31 126/69 98 - Physical Examination General: No Apparent Distress HEENT: Positive: PERRL, Normocephaly, Mucus Membranes Moist Neck: Positive: neck supple Cardiac: Positive: Regular Rate, Bradycardia Lungs: Positive: clear to auscultation Neuro: Positive: Grossly Intact Abdomen: Positive: Soft, Active Bowel Sounds. Negative: Tender Skin: Positive: Clear. Negative: Rash Extremities: Present: normal. Absent: edema - Imaging and Cardiology EKG: image reviewed Echo: report reviewed (02/2016: EF 55-60%, RVSP 37mmHg) - EKG Sinus rhythms and dysrhythmias: sinus rhythm
[2016-03-14] MEDS: ZOFRAN IV PRN (14:31)
[2016-03-14] MEDS: PERCOCET 5/325 PO PRN (14:32)
[2016-03-14] MEDS ORDERED: MORPHINE IV ONE (20:02)
[2016-03-15 06:16] LABS: Hematocrit 30.9 % (30.3-42.9); Hemoglobin 10.5 gm/dl (10.1-14.3); Mean Corpuscular HGB Conc 34 % (30-34); Mean Corpuscular Hemoglobin 30 pg (28-32); Mean Corpuscular Volume 87 fl (79-97); Platelet Count 276 K/mm3 (140-440); Red Blood Count 3.55 M/mm3 (3.65-5.03); Red Cell Distribution Width 12.6 % (13.2-15.2); White Blood Count 9.6 K/mm3 (4.5-11.0)
[2016-03-15 06:41] LABS: Anion Gap 15 mmol/L; BUN/Creatinine Ratio 8.75; Blood Urea Nitrogen 7 mg/dL (7-17); Calcium 8.1 mg/dL (8.4-10.2); Carbon Dioxide 26 mmol/L (22-30); Glucose 109 mg/dL (65-100); Potassium 3.3 mmol/L (3.6-5.0); Sodium 141 mmol/L (137-145)
[2016-03-15] MEDS: PLAVIX PO SCH ×2 (08:31→09:22)
[2016-03-15] MEDS: NACL 0.9% 1000 ML 1,000 ML IV SCH ×2 (08:31→18:18)
[2016-03-15] MEDS: PERCOCET 5/325 PO PRN ×3 (08:32→22:50)
[2016-03-15] MEDS: LOVENOX SUB-Q SCH ×2 (08:32→09:22)
[2016-03-15] MEDS: ASPIRIN PO SCH ×2 (08:32→09:22)
--- NOTE | 2016-03-15 10:20 | Progress Note ---
Assessment and Plan Sinus bradycardia improves with activity continue steroids-->will change to hydrocortisone 15mg QAM and 10mg QPM f/u with Dr. Myers (EP) as an OP Hypotension-->improved with steroids Echo 02/2016: EF 55-60%, RVSP 37mmHg V/Q scan negative for PE pt. encouraged to ambulate Atypical chest pain Hx. 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 remains in sinus concepción but rate improves with activity. Will initiate hydrocortisone 15mg QAM and 10mg QPM. Pt. to f/u with Dr. Myers (EP) as an outpatient. The patient has been seen in conjunction with Dr. Schuster who agrees with the assessment and plan of care. Subjective Date of service: 03/15/16 Principal diagnosis: postural hypotension Interval history: The patient is resting in bed. Sinus concepción at rest but HR improves with activity. Objective Last Vital Signs Temp 97.8 F 03/15/16 07:49 Pulse 50 L 03/15/16 07:49 Resp 20 03/15/16 07:49 BP 184/99 03/15/16 07:49 Pulse Ox 97 03/15/16 09:22 - Physical Examination General: No Apparent Distress HEENT: Positive: PERRL, Normocephaly, Mucus Membranes Moist Neck: Positive: neck supple, trachea midline Cardiac: Positive: Reg Rate and Rhythm, S1/S2 Lungs: Positive: clear to auscultation Neuro: Positive: Grossly Intact Abdomen: Positive: Soft, Active Bowel Sounds. Negative: Tender Skin: Positive: Clear. Negative: Rash Extremities: Present: normal. Absent: edema - Labs and Meds CBC 03/15/16 Range/Units 06:00 WBC 9.6 (4.5-11.0) K/mm3 RBC 3.55 L (3.65-5.03) M/mm3 Hgb 10.5 (10.1-14.3) gm/dl Hct 30.9 (30.3-42.9) % Plt Count 276 (140-440) K/mm3 Comprehensive Metabolic Panel 03/15/16 Range/Units 06:00 Sodium 141 (137-145) mmol/L Potassium 3.3 L (3.6-5.0) mmol/L Chloride 103.0 (98-107) mmol/L Carbon Dioxide 26 (22-30) mmol/L BUN 7 (7-17) mg/dL Creatinine 0.8 (0.7-1.2) mg/dL Glucose 109 H (65-100) mg/dL Calcium 8.1 L (8.4-10.2) mg/dL - Imaging and Cardiology EKG: image reviewed Echo: report reviewed (02/2016: EF 55-60%, RVSP 37mmHg) - Telemetry EKG Rhythm: Sinus Bradycardia - EKG Sinus rhythms and dysrhythmias: sinus rhythm
[2016-03-15] MEDS: K-DUR PO SCH ×2 (11:01→16:58)
--- NOTE | 2016-03-15 11:33 | Query- Chest Pain ---
Chavo Gupta____Lynn Date: 03/15/16 Salvage Winder And Inspector/CDS: Wes Horowitzjacklyn Phone#: [phone] Exercise your independent professional judgment when responding to query. Questions asked do not imply a particular answer is desired or expected. We greatly appreciate your clarification on this issue. Clinical Documentation States: 40 year old female was admitted on 03/09/16. The Patient was admitted for atypical chest pain, and hypotension. The progress note (03/13/16) states " chest pain, atypical. Aspirin daily. Cardiology following" The progress note (03/12/16) states " Atypical chest pain, Echo 02/2016: EF 55-60% . V/Q scan negative for PE. Postural hypotension" Please document the etiology of Chest Pain: [ ] Myocardial Infarction [ ] Pneumonia [ ] Mediastinitis [ ] Costochondritis [ ] Pulmonary Embolism [ ] Coronary Artery Disease [x ] GERD [ ] Other: [ ] Comment/Explanation: [ ] Clinically undeterminable [ ] Not applicable Present on Admission: [ ] Yes (Y) [ ] Clinically undeterminable (W) [ ] No(N) Please document response in your Progress Notes and/or Discharge Summary and indicate if the condition was present on admission. NARINDER
--- NOTE | 2016-03-15 12:08 | Query- Renal Failure ---
Chavo Gupta___Lynn Date:____03/15/16 Fire Safety Director/CDS:____Wes Kathleenmuna Phone#:____[phone] Exercise your independent professional judgment when responding to query. Questions asked do not imply a particular answer is desired or expected. We greatly appreciate your clarification on this issue. Clinical Documentation States: 40 year old female was admitted on 03/09/16. The progress note(03/13/16) states " Acute kidney injury. Now resolved. Creatinine 0.6 down from 2.2 on admission 3 days ago" Clinical Findings Show: 03/09/16 03/12/16 03/15/16 Creatinine: 2.2 0.6 0.8 Please clarify if you mean: Acute Renal Failure with or due to: [ x] Tubular Necrosis [ ] Medullary Necrosis [ ] Vasomotor Nephropathy [ ] Shock Kidney [ ] Tubular Nephrosis [ ] Renal Tubular Stasis [ ] Cortical Necrosis [ ] Acute Renal Failure (unspecified) [ ] Lower Tubular Nephrosis [ ] Other: [ ] Not Applicable Present on Admission: [ x] Yes (Y) [ ] Clinically undeterminable (W) [ ] No (N) Please also document response in your Progress Notes and/or Discharge Summary and indicate if the condition was present on admission. LISAD
[2016-03-15] MEDS: MORPHINE IV PRN ×3 (12:54→21:03)
[2016-03-15] MEDS ORDERED: FLORINEF PO SCH (13:00)
--- NOTE | 2016-03-15 13:31 | Progress Note ---
Assessment and Plan Postural hypotension with bradycardia Pulmonary Hypertension per echo RVSP 37mmHg. V/Q scan negative for PE Atypical chest pain Hx. of atrial fibrillation. s/p ablation (done in [place], [place]) Chronic kidney disease Hx. of DVT/PE- s/p IVC filter placement 03/11 Medications Continue monitoring hemodynamics The patient needs a sleep study for further evaluation of sleep apnea, potentially elevated risk RVSP per consistent with pulmonary hypertension has seen related to sleep- disordered breathing. Evaluation and if her symptoms are suspicious to be related to this problem, right heart catheterization with pulmonary hypertension protocol I doubt chronic thromboembolic pulmonary hypertension (CTEPH) if ventilation perfusion scan is normal Cardiology follow-up Subjective Date of service: 03/15/16 Principal diagnosis: postural hypotension Interval history: Patient with multiple questions. No shortness of breath reported at this time. She feels some pressure on her chest but no hemoptysis or chest pain reported. Denies history of any wheezing Sleep history is unclear with normal restful sleep and unclear history of snoring. Of note, the patient had multiple ablation procedures but never had a sleep study done Objective Vital Signs - 12hr 03/15/16 03/15/16 03/15/16 05:00 07:49 09:22 Temperature 98 F 97.8 F Pulse Rate Pulse Rate [ 50 L Apical] Pulse Rate [ 66 Right Radial] Respiratory 21 20 Rate Respiratory Rate [CHEST PAIN] Blood Pressure 157/85 184/99 [Left Arm] O2 Sat by Pulse 96 97 Oximetry 03/15/16 03/15/16 10:00 11:44 Temperature 98.0 F Pulse Rate 95 H Pulse Rate [ 66 54 L Apical] Pulse Rate [ Right Radial] Respiratory 20 Rate Respiratory 20 Rate [CHEST PAIN] Blood Pressure 177/95 [Left Arm] O2 Sat by Pulse 99 Oximetry Constitutional: no acute distress, other (morbidly obese) Eyes: non-icteric ENT: oropharynx moist, other (Mallampati 3) Neck: supple Effort: no acute distress Ascultation: Bilateral: clear Cardiovascular: regular rate and rhythm, murmur noted Gastrointestinal: normoactive bowel sounds, non-distended Integumentary: normal Extremities: no cyanosis, no cyanosis, no cyanosis Neurologic: normal mental status, non-focal exam Psychiatric: mood appropriate, affect normal CBC and BMP: 03/15/16 06:00 03/15/16 06:00 ABG, PT/INR, D-dimer: PT/INR, D-dimer PT 13.6 Sec. (12.2-14.9) 03/09/16 Unknown INR 1.05 (0.87-1.13) 03/09/16 Unknown D-Dimer 516.98 ng/mlDDU (0-234) H 03/09/16 Unknown Abnormal lab findings: Abnormal Labs 03/09/16 03/09/16 03/09/16 Unknown Unknown Unknown RBC RDW 13.1 L Seg Neutrophils % 70.4 H APTT 36.7 H D-Dimer 516.98 H Potassium Chloride Carbon Dioxide BUN 29 H Creatinine 2.2 H Glucose Calcium Total Creatine Kinase 28 L TSH 03/09/16 03/10/16 03/11/16 Unknown 07:00 05:00 RBC RDW Seg Neutrophils % APTT D-Dimer Potassium Chloride 108.0 H Carbon Dioxide 21 L BUN Creatinine Glucose 106 H 118 H Calcium 8.2 L Total Creatine Kinase TSH 0.240 L 03/12/16 03/12/16 03/14/16 04:50 04:50 14:33 RBC RDW 12.9 L Seg Neutrophils % APTT D-Dimer Potassium Chloride Carbon Dioxide BUN 6 L Creatinine 0.6 L Glucose 134 H Calcium Total Creatine Kinase TSH 0.152 L 03/15/16 03/15/16 06:00 06:00 RBC 3.55 L RDW 12.6 L Seg Neutrophils % APTT D-Dimer Potassium 3.3 L Chloride Carbon Dioxide BUN Creatinine Glucose 109 H Calcium 8.1 L Total Creatine Kinase TSH
--- NOTE | 2016-03-15 16:40 | Progress Note ---
Assessment and Plan Assessment and plan: Hypotension. This is now resolved after given steroids and dopamine in ICU. Dopamine discontinued and she was transferred from ICU to Telemetry on 03/14/16. She has been admitted multiple times recently for similar complaint. Serum cortisol level 1.9, low for am. Chest pain, atypical. Aspirin daily.Cardiology following. Sinus bradycardia. Heart rate in 40s sometimes in 30s. She is however asymptomatic. Heart rate improves with activity. Discussed with cardiology. Conservative management. To follow with Dr. Isabell Myers as an outpatient Acute kidney injury. Now resolved. Creatinine 0.8 down from 2.2 on admission. Hypokalemia with Potassium 3.3 . Replace orally. 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 V/Q scan was negative this admission. s/p IVC placement 03/11/16 DVT prophylaxis with Lovenox. Full code status. History Interval history: And transferred out of intensive care unit to telemetry, Still having intermittent chest pain, dizziness on and off, worried about bradycardia Hospitalist Physical - Physical exam Narrative exam: Gen appearance : Not in acute distress, obese, HEENT: Normocephalic atraumatic, Neck: supple, no JVD. Lungs: clear to auscultation bilaterally, no crackles no wheezes Heart: S1 and S2 regular, bradycardia, no murmurs no gallop Abdomen: soft, non-tender, non-distended, normal bowel sounds Extremities: No edema, no clubbing or cyanosis Neuro : Awake alert oriented 3, no focal signs,moves all ext - Constitutional Vitals: Temp Pulse Resp BP Pulse Ox 98.0 F 54 L 20 177/95 99 03/15/16 11:44 03/15/16 11:44 03/15/16 11:44 03/15/16 11:44 03/15/16 11:44 General appearance: Present: no acute distress, well-nourished Results - Labs CBC & Chem 7: 03/15/16 06:00 03/15/16 06:00 Labs: Laboratory Last Values WBC 9.6 K/mm3 (4.5-11.0) 03/15/16 06:00 RBC 3.55 M/mm3 (3.65-5.03) L 03/15/16 06:00 Hgb 10.5 gm/dl (10.1-14.3) 03/15/16 06:00 Hct 30.9 % (30.3-42.9) 03/15/16 06:00 MCV 87 fl (79-97) 03/15/16 06:00 MCH 30 pg (28-32) 03/15/16 06:00 MCHC 34 % (30-34) 03/15/16 06:00 RDW 12.6 % (13.2-15.2) L 03/15/16 06:00 Plt Count 276 K/mm3 (140-440) 03/15/16 06:00 Lymph % (Auto) 22.3 % (13.4-35.0) 03/09/16 Unknown [place] % (Auto) 5.9 % (0.0-7.3) 03/09/16 Unknown Eos % (Auto) 1.1 % (0.0-4.3) 03/09/16 Unknown Baso % (Auto) 0.3 % (0.0-1.8) 03/09/16 Unknown Lymph # 2.4 K/mm3 (1.2-5.4) 03/09/16 Unknown Cam[place] # 0.6 K/mm3 (0.0-0.8) 03/09/16 Unknown Eos # 0.1 K/mm3 (0.0-0.4) 03/09/16 Unknown Baso # 0.0 K/mm3 (0.0-0.1) 03/09/16 Unknown Seg Neutrophils % 70.4 % (40.0-70.0) H 03/09/16 Unknown Seg Neutrophils # 7.6 K/mm3 (1.8-7.7) 03/09/16 Unknown PT 13.6 Sec. (12.2-14.9) 03/09/16 Unknown INR 1.05 (0.87-1.13) 03/09/16 Unknown APTT 36.7 Sec. (24.2-36.6) H 03/09/16 Unknown D-Dimer 516.98 ng/mlDDU (0-234) H 03/09/16 Unknown Sodium 141 mmol/L (137-145) 03/15/16 06:00 Potassium 3.3 mmol/L (3.6-5.0) L 03/15/16 06:00 Chloride 103.0 mmol/L (98-107) 03/15/16 06:00 Carbon Dioxide 26 mmol/L (22-30) 03/15/16 06:00 Anion Gap 15 mmol/L 03/15/16 06:00 BUN 7 mg/dL (7-17) 03/15/16 06:00 Creatinine 0.8 mg/dL (0.7-1.2) 03/15/16 06:00 Estimated GFR > 60 ml/min 03/15/16 06:00 BUN/Creatinine Ratio 8.75 % 03/15/16 06:00 Glucose 109 mg/dL (65-100) H 03/15/16 06:00 Calcium 8.1 mg/dL (8.4-10.2) L 03/15/16 06:00 Phosphorus 2.8 mg/dL (2.5-4.5) 03/11/16 05:00 Magnesium 1.9 mg/dL (1.7-2.3) 03/11/16 05:00 Total Bilirubin 0.5 mg/dL (0.1-1.2) 03/09/16 Unknown AST 15 units/L (5-40) 03/09/16 Unknown ALT 16 units/L (7-56) 03/09/16 Unknown Alkaline Phosphatase 108 units/L (35-129) 03/09/16 Unknown Total Creatine Kinase 28 units/L (30-135) L 03/09/16 Unknown CK-MB (CK-2) < 1.0 ng/mL (0.0-4.0) 03/09/16 Unknown CK-MB (CK-2) Rel Index 3.5 (0-4) 03/09/16 Unknown Troponin T < 0.010 ng/mL (0.00-0.029) 03/09/16 Unknown Total Protein 7.1 g/dL (6.3-8.2) 03/09/16 Unknown Albumin 3.9 g/dL (3.9-5) 03/09/16 Unknown Albumin/Globulin Ratio 1.2 % 03/09/16 Unknown TSH 0.152 mlU/mL (0.270-4.200) L 03/14/16 14:33 Free T4 1.22 ng/dL (0.76-1.46) 03/14/16 14:33 Free T3 Index 2.2 pg/mL (2.3-4.2) L 03/09/16 16:40 Total Cortisol 1.9 mcg/dL () 03/11/16 06:50
[2016-03-15] MEDS: CORTEF PO SCH ×2 (16:58→17:14)
[2016-03-15] MEDS: ZOFRAN IV PRN (17:06)
[2016-03-15] MEDS: MIRALAX 3350 PO PRN ×2 (17:30→18:13)
[2016-03-16] MEDS: MORPHINE IV PRN ×2 (01:36→05:35)
[2016-03-16] MEDS: ZOFRAN IV PRN (01:42)
[2016-03-16 06:42] LABS: BUN/Creatinine Ratio 11.11; Blood Urea Nitrogen 10 mg/dL (7-17); Calcium 7.9 mg/dL (8.4-10.2); Carbon Dioxide 27 mmol/L (22-30); Chloride 107.8 mmol/L (98-107); Glucose 101 mg/dL (65-100); Potassium 3.1 mmol/L (3.6-5.0); Sodium 144 mmol/L (137-145)
[2016-03-16 06:43] LABS: Anion Gap 12 mmol/L
[2016-03-16] MEDS ORDERED: CORTEF PO SCH (10:00)
[2016-03-16] MEDS: PLAVIX PO SCH (10:45)
[2016-03-16] MEDS: LOVENOX SUB-Q SCH (10:45)
[2016-03-16] MEDS: ASPIRIN PO SCH (10:45)
[2016-03-16] MEDS: PERCOCET 5/325 PO PRN (10:45)
--- NOTE | 2016-03-16 11:17 | Progress Note ---
Assessment and Plan Postural hypotension with bradycardia Pulmonary Hypertension per echo RVSP 37mmHg. V/Q scan negative for PE Atypical chest pain Dyspnea, nonspecific Suspected ROSALIND Hx. of atrial fibrillation. s/p ablation (done in [place], [place]) Chronic kidney disease Hx. of DVT/PE- s/p IVC filter placement 03/11 Medications K+ replacement Consider walk evaluation with oximetry prior to discharge OPD pulmonary function tests and 6 minute walk test Outpatient sleep study See prior recommendations Will follow up as needed. Signing off Subjective Date of service: 03/16/16 Principal diagnosis: postural hypotension Interval history: Still complains of tiredness and fatigue on minimal exertion. Very nonspecific. No chest pain. Claims she slept well last night. No history of wheezing Objective Vital Signs - 12hr 03/16/16 03/16/16 03/16/16 00:31 01:49 05:28 Temperature 97.6 F 98.2 F Pulse Rate 87 Pulse Rate [ 65 64 Apical] Pulse Rate [ Left Radial] Respiratory 20 18 Rate Blood Pressure 117/70 121/68 [Left Arm] O2 Sat by Pulse 99 100 Oximetry 03/16/16 03/16/16 07:38 08:29 Temperature 98.3 F Pulse Rate 53 L Pulse Rate [ Apical] Pulse Rate [ 60 Left Radial] Respiratory 12 Rate Blood Pressure 109/63 [Left Arm] O2 Sat by Pulse 96 Oximetry Constitutional: no acute distress, other (morbidly obese) Eyes: non-icteric ENT: oropharynx moist, other (Mallampati 3) Neck: supple Effort: no acute distress Ascultation: Bilateral: clear Cardiovascular: regular rate and rhythm, murmur noted Gastrointestinal: normoactive bowel sounds, non-distended Integumentary: normal Extremities: no cyanosis, no cyanosis, no cyanosis Neurologic: normal mental status, non-focal exam Psychiatric: mood appropriate, affect normal CBC and BMP: 03/15/16 06:00 03/16/16 Unknown ABG, PT/INR, D-dimer: PT/INR, D-dimer PT 13.6 Sec. (12.2-14.9) 03/09/16 Unknown INR 1.05 (0.87-1.13) 03/09/16 Unknown D-Dimer 516.98 ng/mlDDU (0-234) H 03/09/16 Unknown Abnormal lab findings: Abnormal Labs 03/09/16 03/09/16 03/09/16 Unknown Unknown Unknown RBC RDW 13.1 L Seg Neutrophils % 70.4 H APTT 36.7 H D-Dimer 516.98 H Potassium Chloride Carbon Dioxide BUN 29 H Creatinine 2.2 H Glucose Calcium Total Creatine Kinase 28 L TSH 03/09/16 03/10/16 03/11/16 Unknown 07:00 05:00 RBC RDW Seg Neutrophils % APTT D-Dimer Potassium Chloride 108.0 H Carbon Dioxide 21 L BUN Creatinine Glucose 106 H 118 H Calcium 8.2 L Total Creatine Kinase TSH 0.240 L 03/12/16 03/12/16 03/14/16 04:50 04:50 14:33 RBC RDW 12.9 L Seg Neutrophils % APTT D-Dimer Potassium Chloride Carbon Dioxide BUN 6 L Creatinine 0.6 L Glucose 134 H Calcium Total Creatine Kinase TSH 0.152 L 03/15/16 03/15/16 03/16/16 06:00 06:00 Unknown RBC 3.55 L RDW 12.6 L Seg Neutrophils % APTT D-Dimer Potassium 3.3 L 3.1 L Chloride 107.8 H Carbon Dioxide BUN Creatinine Glucose 109 H 101 H Calcium 8.1 L 7.9 L Total Creatine Kinase TSH
--- NOTE | 2016-03-16 11:48 | Discharge Summary ---
[id number] 03/16/16 Attending physician: KIMANI BOYER 03/10/16 11:42 Consult to Physician [CONS] Routine Consulting Provider: SOFÍA PIERCE Reason For Exam: ccu admission Place consult to:: alia Notified:: to be notified by den 03/10/16 11:58 Consult to Physician [CONS] Routine Consulting Provider: PEDRO BRADY Reason For Exam: hx.DVT/PE s/p IVC filter removal, may need filter Place consult to:: andrea Notified:: yes If yes, spoke with:: yes Primary care physician: PLASTIC FINISHER Hospitalization Condition: Fair Disposition: DC/TX HOME UNDER HOME HEALTH - Discharge Diagnoses (1) PRINCESS (acute kidney injury) Status: Acute (2) Atrial fibrillation Status: Acute (3) Chest pain Status: Acute Qualifiers: Chest pain type: unspecified Qualified Code(s): R07.9 - Chest pain, unspecified Comment: due to GERD (4) Hypotension Status: Acute Qualifiers: Hypotension type: unspecified hypotension type Qualified Code(s): I95.9 - Hypotension, unspecified (5) Sinus bradycardia Status: Acute Core Measure Documentation - Palliative Care Palliative Care/ Comfort Measures: Not Applicable - Core Measures Any of the following diagnoses?: history only (history of PE) Exam - Constitutional Vitals: Temp Pulse Resp BP Pulse Ox 98.3 F 53 L 12 109/63 96 03/16/16 07:38 03/16/16 08:29 03/16/16 07:38 03/16/16 07:38 03/16/16 07:38 Plan Activity: advance as tolerated Diet: low fat, low cholesterol, low salt Special Instructions: home health RN Additional Instructions: 1. Follow up with PCP in 3-5 days. 2. Follow up with Dr. Isabell Acosta, Utility Plant Operative in 1 week. 3. Follow up with Dr. Hartman, Md Senior Research Scientist in 1 week to follow up hypocortisolism. Follow up with: ALLISON ACOSTA MD [Staff Physician] - 7 Days PRIMARY CARE, [Primary Care Provider] - 3-5 Days Forms: Discharge Signature Page Prescriptions: Hydrocortisone [Cortef TAB] 10 mg PO QPM #30 tablet Hydrocortisone [Cortef TAB] 15 mg PO QAM #30 tablet
--- NOTE | 2016-03-16 12:10 | Progress Note ---
Assessment and Plan Sinus bradycardia improves with activity continue steroids--> hydrocortisone 15mg QAM and 10mg QPM f/u with Dr. Myers (EP) as an OP Hypotension-->improved with steroids Echo 02/2016: EF 55-60%, RVSP 37mmHg V/Q scan negative for PE orthostatics negative Atypical chest pain Hx. of atrial fibrillation s/p ablation (done in [place], [place]) Chronic kidney disease renal indices normal today per nephrology Hx. of DVT/PE s/p IVC filter placement 03/11 per vascular ?Lupus Stable cardiac status. Patient may be discharged from a cardiac standpoint. Pt. to f/u with Dr. Myers (EP) and Dr. Hartman (endocrinology) as an outpatient. The patient has been seen in conjunction with Dr. Schuster who agrees with the assessment and plan of care. Subjective Date of service: 03/16/16 Principal diagnosis: postural hypotension Interval history: The patient is resting in bed. No new complaints. Pt. tachycardic overnight on the monitor. Objective Last Vital Signs Temp 98.3 F 03/16/16 07:38 Pulse 53 L 03/16/16 08:29 Resp 12 03/16/16 07:38 BP 109/63 03/16/16 07:38 Pulse Ox 96 03/16/16 07:38 - Physical Examination General: No Apparent Distress HEENT: Positive: PERRL, Normocephaly, Mucus Membranes Moist Neck: Positive: neck supple, trachea midline Cardiac: Positive: Reg Rate and Rhythm, S1/S2 Lungs: Positive: clear to auscultation Neuro: Positive: Grossly Intact Abdomen: Positive: Soft, Active Bowel Sounds. Negative: Tender Skin: Positive: Clear. Negative: Rash Extremities: Present: normal. Absent: edema - Labs and Meds Comprehensive Metabolic Panel 03/16/16 Range/Units Unknown Sodium 144 (137-145) mmol/L Potassium 3.1 L (3.6-5.0) mmol/L Chloride 107.8 H (98-107) mmol/L Carbon Dioxide 27 (22-30) mmol/L BUN 10 (7-17) mg/dL Creatinine 0.9 (0.7-1.2) mg/dL Glucose 101 H (65-100) mg/dL Calcium 7.9 L (8.4-10.2) mg/dL - Imaging and Cardiology EKG: image reviewed Echo: report reviewed (02/2016: EF 55-60%, RVSP 37mmHg) - Telemetry EKG Rhythm: Sinus Rhythm - EKG Sinus rhythms and dysrhythmias: sinus rhythm
[2016-03-16 12:30] VITALS: BP 104/63
[2016-03-16] MEDS ORDERED: FLUSH HEPARIN IV ONE ×2 (14:34→14:35)
== END 2016-03-16 17:29 | disposition home health service (06) | DRG 252 ==
LOC: ED 12:53 → 4A 20:53 → CC1 03-10 13:40 → 4A 03-14 17:03
PROVIDERS: ADMIT Hospitalist; ATTEND Internal Medicine
PROC: 06H03DZ Insertion of Intraluminal Device into Inferior Vena Cava, Percutaneous Approach (ICD-10-PCS; principal; 2016-03-11)
PROC: B54BZZZ Ultrasonography of Right Lower Extremity Veins (ICD-10-PCS; principal; 2016-03-11)
PROC: B5191ZZ Fluoroscopy of Inferior Vena Cava using Low Osmolar Contrast (ICD-10-PCS; principal; 2016-03-11)
DX: I95.9 Hypotension, unspecified (principal); N17.0 Acute kidney failure with tubular necrosis; D68.59 Other primary thrombophilia; R00.1 Bradycardia, unspecified; I48.91 Unspecified atrial fibrillation; N18.9 Chronic kidney disease, unspecified; M32.9 Systemic lupus erythematosus, unspecified; I25.10 Atherosclerotic heart disease of native coronary artery without angina pectoris; K21.9 Gastro-esophageal reflux disease without esophagitis; I73.9 Peripheral vascular disease, unspecified; E66.9 Obesity, unspecified; R07.89 Other chest pain; I27.2 Other secondary pulmonary hypertension; E87.6 Hypokalemia; I25.2 Old myocardial infarction; Z86.718 Personal history of other venous thrombosis and embolism; Z86.711 Personal history of pulmonary embolism; Z88.2 Allergy status to sulfonamides; Z88.8 Allergy status to other drugs, medicaments and biological substances; Z91.040 Latex allergy status; Z98.890 Other specified postprocedural states; Z82.49 Family history of ischemic heart disease and other diseases of the circulatory system; Z68.39 Body mass index [BMI] 39.0-39.9, adult
CPT/HCPCS: 36415; 37191; 71010; 76770; 76937; 78582; 80048; 80053; 82533; 82550; 82553; 83735; 84100; 84439; 84443; 84480; 84481; 84484; 85025; 85027; 85379; 85610; 85730; 93005; 93010; 93306; 93970; 94760; 96365; 96372; 96375; A9540; A9558; C1880; J0690; J1265; J1642; J1644; J1650; J1720; J2250; J2270; J2405; J3010; J7030; J7040; J7050; Q9967